=== PATIENT | female | born 1960 | race Caucasian/White ===

== ENCOUNTER 2023-10-30 07:11 | Day surgery (SDC) | payer SELFPAY ==
[2023-10-30 07:43] VITALS: BP 112/66; PULSE 68; RESP 16; TEMP 36.1; O2SAT 99; BMI 18.7
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
[2023-10-30] MEDS: Lactated Ringers 1,000 ML 15 ML IV (08:02)
--- NOTE | 2023-10-30 08:21 | PCM.HP.STD ---
[facility] - General General Date of Admission: 10/30/23 Date of Service: 10/30/23 Chief Complaint: Screening colonoscopy [facility] Dixon MARTINEZ, is a 63 F who presents today for screening colonoscopy. She had a colonoscopy 12 years ago and it was normal. She has a past medical history of hypertension, hypercholesterolemia, diabetes, hypothyroidism. All controlled medicines. [facility] Medical History (Updated 10/29/23 @ 10:01 by Joselin Jimenez) Chronic alcoholism in remission Dietary restriction DM w/o complication type II, uncontrolled Emphysema, unspecified Fatty liver Former smoker GERD (gastroesophageal reflux disease) High cholesterol History of stress test Hyperlipidemia Hypothyroid Iron deficiency anemia Loss of hearing Low iron Marijuana use Meniere disease Pancytopenia Post-menopausal Severe major depression Thyroid disease Vitamin D deficiency Wears glasses Wears hearing aid Home Medications atorvastatin 10 mg tablet 10 mg PO DAILY 10/15/23 [History Last Taken Unknown] empagliflozin 10 mg tablet (Jardiance) 10 mg PO DAILY 10/15/23 [History Last Taken Unknown] glimepiride 4 mg tablet 2 mg PO BID 10/15/23 [History Last Taken Unknown] levothyroxine 75 mcg tablet (Synthroid) 75 mcg PO DAILY 10/15/23 [History Last Taken Unknown] lisinopril 2.5 mg tablet 2.5 mg PO DAILY 10/15/23 [History Last Taken Unknown] biotin 10,000 mcg capsule 10,000 mcg PO DAILY 10/29/23 [History Last Taken Unknown] cholecalciferol (vitamin D3) 25 mcg (1,000 unit) chewable tablet (Vitamin D3) 10,000 unit PO DAILY 10/29/23 [History Last Taken Unknown] cyanocobalamin (vitamin B-12) 1,000 mcg tablet (Vitamin B-12) 5,000 mcg PO DAILY 10/29/23 [History Last Taken Unknown] ginkgo biloba 60 mg tablet 60 mg PO DAILY 10/29/23 [History Last Taken Unknown] multivitamin with minerals-folic acid 12 mcg chewable tablet (Centrum Adults) 1 tab PO DAILY 10/29/23 [History Last Taken Unknown] vitamin B complex (Complex B-100 tablet,extended release) 1 tab PO DAILY 10/29/23 [History Last Taken Unknown] Allergy/AdvReac Type Severity Reaction Status Date / Time metformin AdvReac NEEDS Verified 10/30/23 07:41 FOLLOW-UP Surgical History (Updated 10/29/23 @ 10:01 by Joselin Jimenez) History of History of cholecystectomy History of laparoscopy History of tonsillectomy Hx of colonoscopy Social History (Updated 10/15/23 @ 08:28 by Chani Chase) household members: other details: Lives alone current occupational status: unemployed Smoking Status: Former smoker alcohol intake: former substance use type: does not use ROS Review of Systems ROS Unobtainable: other Constitutional Constitutional: Denies fatigue, fever(s), poor appetite, weight gain or weight loss ENT HEENT: Denies mouth lesions Cardiovascular Cardiovascular: Denies abdominal bloating, abdominal edema or abdominal pain Respiratory/Chest Respiratory/Chest: Denies change in mental status, change in phlegm color, chest congestion or chest tightness Gastrointestinal Gastrointestinal: Denies belching, bloating, change in bowel habits, change in stool character, chewing difficulty, coffee ground emesis, constipation, cramping, diarrhea, dyspepsia, dysphagia, early satiety, excessive flatus, fecal incontinence, heartburn, hematemesis, hematochezia, hemorrhoids, loose stools, melena, nausea, odynophagia, rectal bleeding, tenesmus, vomiting or weight changes Genitourinary Genitourinary: Denies abdominal discomfort, burning urination or itching Musculoskeletal Musculoskeletal: Reports as per HPI; Denies muscle weakness or myalgias Integumentary Integumentary: Denies jaundice Neurologic Neurologic: Denies lack of coordination or weakness Psychiatric Psychiatric: Denies confusion, depression, memory loss, mood swings, paranoia or suicidal ideation Endocrine Endocrinology: Denies systems reviewed and no addt'l complaints, except as documented Hematologic/Lymphatic Hematologic/Lymphatic: Denies anemia, easy bleeding, easy bruising or lymphadenopathy Allergic/Immunologic Allergic/Immunologic: Denies systems reviewed and no addt'l complaints, except as documented Vital Signs Vital Signs Vital Signs: 10/30/23 07:43 10/30/23 07:43 Temperature 97 F L Temperature Source Temporal Pulse Rate 68 Respiratory Rate 16 Respiratory Pattern Normal Blood Pressure 112/66 Blood Pressure Mean 81 Blood Pressure Source Monitor Blood Pressure Position Sitting Blood Pressure Location Right Arm Pulse Ox 99 Oxygen Delivery Method Room Air Weight Weight: 109 lb Body Mass Index (BMI) 18.7 Physical Exam Const alert General Appearance: cooperative Orientation / Consciousness: oriented to person HEENT hearing grossly normal bilaterally Head and Scalp: normal to inspection Face and Sinus: face symmetric Nose: external nose normal Mouth: oral and palatal mucosa normal Eyes conjunctivae normal General Eye: normal appearance of both eyes Neck full ROM General: normal visual inspection Lymph Lymphatic: no lymphadenopathy noted Chest inspection of chest normal and palpation of chest normal Chest: symmetrical chest wall rise Resp normal respiratory effort Effort and Inspection: able to speak in complete sentences Cardio regular rate GI non-distended Percussion: normal to percussion Rectal Exam: deferred Neuro Speech: speech normal Gait (Neuro): normal gait Assessment & Plan Assessment/Plan (1) Encounter for screening for malignant neoplasm of colon: PLAN: She was explained alternatives, risk, benefits including not withstanding bleeding, infection, sepsis, perforation, need for emergent surgery and . She will have an ASA of 3.
[2023-10-30 08:22] LABS: Bedside Glucose 164 mg/dL (74-106)
--- NOTE | 2023-10-30 09:59 | OP.CCLET_ITS ---
10/30/2023 Ellen Lao Md Re : Colonoscopy procedure for Gypsy Gramajo Dear Tashia This procedure was performed on Monday, October 30, 2023. My impressions and recommendations are as follows: Impressions : - The entire examined colon is normal. - No specimens collected. Recommendations : - Discharge patient to home. - Resume previous diet. - Repeat colonoscopy in 10 years for screening purposes. - Continue present medications. My findings are described in the full procedure note, which is enclosed. If I can be of further assistance, please feel free to contact me at . Sincerely, Franc Gerber, 10/30/2023 9:58:46 AM This report has been signed electronically.
--- NOTE | 2023-10-30 09:59 | OP.COLON_ITS ---
Patient Name: Gypsy Gramajo Procedure Date: 10/30/2023 9:19 AM Date of : 1960 Age: 63 Procedure: Colonoscopy Indications: Screening for colorectal malignant neoplasm Providers: Franc Gerber DO Medicines: Monitored Anesthesia Care Patient Profile: This is a 63 year old female. Refer to note in patient chart for documentation of history and physical. Last Colonoscopy: more than 10 years ago. Complications: No immediate complications. Procedure: Pre-Anesthesia Assessment: - Prior to the procedure, a History and Physical was performed, and patient medications and allergies were reviewed. The patient is competent. The risks and benefits of the procedure and the sedation options and risks were discussed with the patient. All questions were answered and informed consent was obtained. Patient identification and proposed procedure were verified by the physician in the pre-procedure area. Mental Status Examination: alert and oriented. Airway Examination: normal oropharyngeal airway and neck mobility. Respiratory Examination: clear to auscultation. CV Examination: normal. Prophylactic Antibiotics: The patient does not require prophylactic antibiotics. Prior Anticoagulants: The patient has taken no anticoagulant or antiplatelet agents. After reviewing the risks and benefits, the patient was deemed in satisfactory condition to undergo the procedure. The anesthesia plan was to use monitored anesthesia care (MAC). Immediately prior to administration of medications, the patient was re-assessed for adequacy to receive sedatives. The heart rate, respiratory rate, oxygen saturations, blood pressure, adequacy of pulmonary ventilation, and response to care were monitored throughout the procedure. The physical status of the patient was re-assessed after the procedure. After I obtained informed consent, the scope was passed under direct vision. Throughout the procedure, the patient's blood pressure, pulse, and oxygen saturations were monitored continuously. The pediatric colonoscope was introduced through the anus and advanced to the cecum, identified by appendiceal orifice and ileocecal valve. The colonoscopy was performed without difficulty. The patient tolerated the procedure well. The quality of the bowel preparation was adequate. The ileocecal valve, appendiceal orifice, and rectum were photographed. Scope In: 9:29:02 AM Scope Withdrawal Time 0 hours 15 minutes 8 seconds Scope Out: 9:53:50 AM Total Procedure Duration Time 0 hours 24 minutes 48 seconds Findings: The perianal and digital rectal examinations were normal. The colon (entire examined portion) appeared normal. Impression: - The entire examined colon is normal. - No specimens collected. Recommendation: - Discharge patient to home. - Resume previous diet. - Repeat colonoscopy in 10 years for screening purposes. - Continue present medications. Procedure Code(s): --- Professional --- G0121, Colorectal cancer screening; colonoscopy on individual not meeting criteria for high risk CPT copyright 2021 [employer]. All rights reserved. The codes documented in this report are preliminary and upon cobol engineer review may be revised to meet current compliance requirements. Franc Gerber DO 10/30/2023 9:58:46 AM This report has been signed electronically. Number of Addenda: 0 Note Initiated On: 10/30/2023 9:19 AM
[2023-10-30 10:00] VITALS: BP 112/66; BP 116/70; PULSE 78; RESP 16; TEMP 36.1; O2SAT 100
[2023-10-30 10:05] VITALS: BP 112/66; BP 113/66; PULSE 69; RESP 16; O2SAT 100
[2023-10-30 10:10] VITALS: BP 112/66; BP 124/82; PULSE 82; RESP 16; TEMP 36.3; O2SAT 100
[2023-10-30 10:31] VITALS: BP 112/66
== END 2023-10-30 10:36 | disposition home or self-care (01) ==
LOC: EN 07:20 → AC 07:21
PROVIDERS: PCP Family Medicine; Referring Provider Family Medicine; Visit Provider Internal Medicine Gastroenterology
PROC: 0DJD8ZZ Inspection of Lower Intestinal Tract, Via Natural or Artificial Opening Endoscopic (ICD-10-PCS; CPT 45378; principal; 2023-10-30 08:25)
DX: Z12.11 Encounter for screening for malignant neoplasm of colon (principal); F10.21 Alcohol dependence, in remission; E11.9 Type 2 diabetes mellitus without complications; Z87.891 Personal history of nicotine dependence; F12.90 Cannabis use, unspecified, uncomplicated; E78.00 Pure hypercholesterolemia, unspecified; H81.09 Meniere's disease, unspecified ear; E03.9 Hypothyroidism, unspecified; K21.9 Gastro-esophageal reflux disease without esophagitis; I10 Essential (primary) hypertension; K76.0 Fatty (change of) liver, not elsewhere classified; D50.9 Iron deficiency anemia, unspecified
CPT/HCPCS: G0121; 82962; J7120; J2405

== ENCOUNTER → 2023-11-07 | Outpatient (CLI) | payer SELFPAY ==
--- NOTE | 2023-11-07 13:25 | BI_ITS ---
MAMMOGRAPHY - BILATERAL SCREENING REASON FOR EXAM: Female, 63 years old. Routine annual screening examination. PERTINENT HISTORY: Aunt with breast cancer. TECHNIQUE: Digital bilateral breast curtis (3D mammographic acquisition) in the CC and MLO projections. 2-D mediolateral oblique (MLO) and craniocaudad (CC) views of both breasts were obtained. CAD: Full Field Digital Mammography with Computer Added Detection was performed. COMPARISON: Comparison is made with prior outside examination dated December 20, 2021. FINDINGS: Breast Composition: The breasts are heterogeneously dense, which may obscure small masses. There are no dominant masses or suspicious calcifications. No other significant abnormalities are identified. There has been no significant change since the prior study. BI/SCRN MAMM (CAD)W/CURTIS BILAT IMPRESSION: Stable bilateral screening mammogram. Yearly follow-up mammogram recommended. (A) ASSESSMENT CATEGORY: BIRADS Category 1: Negative. A letter regarding these results will be sent to the patient by the facility within 30 days. Approximately 10% of breast cancers are not detected by mammography. A normal mammogram should not delay biopsy of a clinically suspicious abnormality. [id number] Electronically Signed: David Quezada MD at 14:18 EDT ,
--- NOTE | 2023-11-07 13:25 | BD_ITS ---
STUDY: DUAL ENERGY X-RAY ABSORPTIOMETRY / DXA REASON FOR EXAM: Female, 63 years old. [id number] TECHNIQUE: Bone Mineral Density (BMD) measurements of lumbar spine and bilateral hips were obtained. COMPARISON: None. FINDINGS: Lumbar Spine (L1-L4): g/cm2 (0.826) / T-score (-2.3) / Z-score (-0.7) Findings are suggestive of osteopenia with a high fracture risk. Left Femur Total: g/cm2 (0.691) / T-score (-2.1) / Z-score (-1.0) Left Femoral Neck: g/cm2 (0.629) / T-score (-2.0) / Z-score (-0.6) Right Femur Total: g/cm2 (0.686) / T-score (-2.1) / Z-score (-1.0) Right Femoral Neck: g/cm2 (0.608) / T-score (-2.2) / Z-score (-0.8) BD/Dexa Bone Density Study IMPRESSION: The patient is considered osteopenic as outlined below according to World [employer] Organization (WHO) criteria with a high fracture risk. Reference Information: The T-score is the number of standard deviations above or below the standard which is normal for young adults at their peak bone mineral density. The World Health Organization (WHO) interprets the T-scores as follows: Above -1 Normal bone density Between -1 and -2.5 Osteopenia Equal to / or below -2.5 Osteoporosis As a practical clinical guideline, osteopenia may be graded as follows: Mild -1 through -1.5 Moderate -1.6 through -2.0 Severe -2.1 through -2.4 The Z-score is the number of standard deviations above or below age-matched controls. A Z-score of less than -1.5 would be considered abnormal. References: 1. NIH Osteoporosis and Related Bone Diseases www osteo.org 2. International Society for Clinical Densitometry www iscd.org 3. National Osteoporosis Foundation www nof.org Electronically Signed: David Quezada MD at 11:08 EDT ,
--- NOTE | 2023-11-07 16:12 | MRI_ITS ---
STUDY: MRI BRAIN WITH AND WITHOUT CONTRAST (ATTENTION INTERNAL AUDITORY CANALS - I.A.C.''s) REASON FOR EXAM: Female, 63 years old. SUDDEN SENSORINEURAL HEARING LOSS TECHNIQUE: Standardized multiplanar fat and water weighted pulse sequences were obtained. IV 10ml clariscan was administered for the contrast portion of the examination. COMPARISON: None. FINDINGS: Normal bilateral temporal bones. Normal bilateral internal auditory canals. There is no demonstrated intracanalicular or cisternal vestibular schwannoma ( acoustic neuroma ). There is no enhancement of the bilateral VIIth or VIIIth cranial nerves. Normal bilateral cochlea, vestibules and semicircular canals. Normal size of the ventricles and extra-axial spaces for the patient''s age. Mild to moderate periventricular white matter ischemic changes without mass effect or restricted diffusion... Normal bilateral basal ganglia. Normal thalami. Normal flow voids within the major intracranial circulation suggesting patency by spin echo criteria. Normal venous enhancement. There is no enhancing intra-axial or extra-axial abnormality. There is no extra-axial fluid accumulation. On the sagittal images, there is a suggestion of a tiny nodule arising from the floor of of the sella possibly representing pituitary adenoma measuring 3.8 x 2.8 mm which is incompletely imaged.. Normal, infundibular stalk, optic chiasm and hypothalamus. Normal tectal plate and pineal gland. Normal midbrain, and medulla. There is increased signal intensity within the antoinette on T2 and FLAIR imaging sequence which has an unusual appearance and may represent artifact rather than true chronic ischemic changes. Normal cerebellum. Normal basal cisterns. No demonstrated orbital abnormality, within the constraints of a routine brain study. Normal visualized paranasal sinuses. Normal calvarium and skull base. Normal visualized soft tissue structures. Normal visualized upper cervical spine. MRI/Brain W/WO Contrast IMPRESSION: Mild to moderate periventricular white matter ischemic changes. No evidence for acute. Infarct No evidence for acoustic neuroma.. Question tiny left cerebellar possibly pituitary nodule incompletely visualized.. Dedicated study of the sella turcica would be useful for further assessment if clinically indicated Electronically Signed: Stan Weiss MD at 16:58 EDT ,
[2023-11-07 19:27] LABS: CREATININE FINGERSTICK < 1.0 mg/dL (0.55-1.02); EGFR FINGERSTICK > 60.0000 mL/min (>60)
== END | disposition home or self-care (01) ==
PROVIDERS: PCP Family Medicine; Referring Provider Family Medicine; Visit Provider Family Medicine
DX: Z12.31 Encounter for screening mammogram for malignant neoplasm of breast (principal); H91.22 Sudden idiopathic hearing loss, left ear; Z80.3 Family history of malignant neoplasm of breast; Z78.0 Asymptomatic menopausal state
CPT/HCPCS: 70553; 77063; 77067; 77080; A9575

== ENCOUNTER 2024-03-30 12:46 | Inpatient (IN) | payer OTHER, SELFPAY ==
[2024-03-30] VITALS (10 sets, daily range): BP systolic 122–155; BP diastolic 68–96; PULSE 68–108; RESP 16–17; TEMP 36.1–37.2; O2SAT 95–100; BMI 18.8
--- NOTE | 2024-03-30 13:35 | EX.ED.SAOD ---
HPI History of Present Illness Chief Complaint: ETOH Intox Informant: patient Onset/Context/Timing Onset: Weeks Context: Gradual Onset Timing: Continuous Current Severity: Mild Maximum Severity: Mild Narrative Narrative: 63-year-old female history of alcohol abuse. Had been sober since last November 2022 when she had her last detox. The last several weeks she has began drinking again. Is looking to get inpatient detox. Prior similar symptoms: Yes Recent Illness/Hospitalization: No PFSH PFS Medical History Meniere disease Loss of hearing Wears hearing aid Wears glasses Post-menopausal Marijuana use Thyroid disease Low iron Fatty liver High cholesterol Dietary restriction Emphysema, unspecified Former smoker History of stress test Chronic alcoholism in remission Vitamin D deficiency Severe major depression Pancytopenia Iron deficiency anemia GERD (gastroesophageal reflux disease) Hypothyroid Hyperlipidemia DM w/o complication type II, uncontrolled Home Medications ?Medication ?Instructions ?Recorded ?Last Taken ?Type atorvastatin 10 mg tablet 10 mg PO DAILY 10/15/23 Unknown History empagliflozin 10 mg tablet 10 mg PO DAILY 10/15/23 Unknown History (Jardiance) glimepiride 4 mg tablet 2 mg PO BID 10/15/23 Unknown History levothyroxine 75 mcg tablet 75 mcg PO DAILY 10/15/23 Unknown History (Synthroid) lisinopril 2.5 mg tablet 2.5 mg PO DAILY 10/15/23 Unknown History biotin 10,000 mcg capsule 10,000 mcg PO DAILY 10/29/23 Unknown History cholecalciferol (vitamin D3) 25 10,000 unit PO DAILY 10/29/23 Unknown History mcg (1,000 unit) chewable tablet (Vitamin D3) cyanocobalamin (vitamin B-12) 5,000 mcg PO DAILY 10/29/23 Unknown History 1,000 mcg tablet (Vitamin B-12) ginkgo biloba 60 mg tablet 60 mg PO DAILY 10/29/23 Unknown History multivitamin with minerals-folic 1 tab PO DAILY 10/29/23 Unknown History acid 12 mcg chewable tablet (Centrum Adults) vitamin B complex (Complex B-100 1 tab PO DAILY 10/29/23 Unknown History tablet,extended release) ibandronate 150 mg tablet mg PO 03/30/24 Unknown History Allergy/AdvReac Type Severity Reaction Status Date / Time metformin AdvReac NEEDS Verified 03/30/24 12:48 FOLLOW-UP Surgical History History of laparoscopy History of tonsillectomy History of cholecystectomy History of Hx of colonoscopy Social History household members: other details: Lives alone current occupational status: unemployed Smoking Status: Former smoker alcohol intake: former substance use type: does not use ROS ROS ED ROS Narrative Denies recent illness. Constitutional Constitutional ED: Denies chills or fever(s) Eyes Eyes: Denies blurry vision ENT ENT ED: Denies ear pain, rhinorrhea or sore throat Cardiovascular Cardiovascular: Denies chest pain or palpitations Respiratory/Chest Respiratory/Chest: Denies cough or dyspnea Gastrointestinal Gastrointestinal: Denies abdominal pain, constipation, diarrhea, melena, nausea or vomiting Genitourinary Genitourinary ED: Denies dysuria Musculoskeletal Musculoskeletal: Denies arthralgias Integumentary Denies abscess Neurologic Neurologic: Denies headache(s) Psychiatric Psychiatric: Denies anxiety Endocrine Endocrinology: Denies cold intolerance Hematologic/Lymphatic Hematologic/Lymphatic: Denies easy bleeding Allergic/Immunologic Allergic/Immunologic ED: Denies mouth swelling EXAM Physical Exam Narrative Exam Narrative: Well-appearing 63-year-old female. Vital signs are stable afebrile. H EENT exam unremarkable. Moist mucous membranes. Neck nontender no JVD. Lungs clear to auscultation. Heart regular rhythm rate about 105 no murmur. Chest wall ribs nontender. Abdomen soft nontender. Moving all extremities. Nontender no edema. Neurologically she is awake alert no focal motor deficits. Const Vital Signs: 03/30/24 12:47 03/30/24 13:51 03/30/24 14:00 Temperature 98.2 F Temperature Source Temporal Pulse Rate 108 H 81 86 Respiratory Rate 16 16 17 Blood Pressure 155/80 H 153/96 H 142/68 H Blood Pressure Mean 105 115 92 Pulse Ox 99 100 97 Oxygen Delivery Method Room Air Room Air Room Air Positive well nourished and well developed; Negative for obese, cachectic, contractures or unkempt General Appearance ED: well developed and NAD; Negative for unkempt, cachectic, contractures or pallor Nutritional Appearance: Negative for cachectic or obese HEENT Reports moist mucous membranes; Denies dry mucous membranes Negative for atraumatic, trauma or tenderness Mouth ED: No dry mucous membranes Mouth: No dry mucous membranes Eyes PERRL and EOMs intact bilaterally General Eye ED: Negative for pale conjunctiva Neck no lymphadenopathy, supple and no JVD Thyroid: Negative for tender or other Lymph Lymphatic: no lymphadenopathy noted Chest Wall inspection of chest normal Chest: Negative for other Resp normal respiratory effort and clear to auscultation bilaterally Effort and Inspection: Negative for retractions Auscultation: Negative for rales, rhonchi or wheezes Cardio regular rate, regular rhythm, S1 normal heart sound, S2 normal heart sound and no murmurs Rate: Negative for bradycardia or tachycardic Rhythm: Negative for abnormal rhythm GI soft to palpation, non-tender, non-distended and no masses Inspection: Negative for abdominal distention Palpation: Negative for tender or guarding Back/Spine no CVA tenderness General Back: Negative for CVA tenderness Cervical Spine: Negative for cervical spine tenderness Thoracic Spine / Upper Back: Negative for thoracic spinal tenderness Lumbar Spine / Lower Back: Negative for lumbar spinal tenderness Extremity General Extremety ED: Negative for edema or tenderness General Extremity: Negative for edema Neuro oriented x3 and CN's II-XII intact bilaterally Sensorium / Orientation: alert, oriented to person, oriented to place and oriented to time; Negative for confused, lethargic or stuporous Speech: speech normal Motor Exam: strength 5/5 throughout Psych mental status grossly normal and thought process normal Appearance: Negative for unkempt Attitude: No belligerent, No agitated, No aggressive and No hostile Mood & Affect: anxious; Negative for depressed or tearful Skin General Skin Exam: Negative for jaundice or pallor Lesions: no lesions Rashes: no rashes Trauma: Negative for abrasion or laceration MDM MDM MDM Narrative Medical decision making narrative: 63-year-old female requesting detox for alcohol abuse. Exam benign. Screening labs are being obtained. Is already spoken to the hospitalist. He is coming down to admit her. She also be given a milligram of Ativan for anxiety. History & Record Review Discussion w/independent historian: Patient Additional record(s) reviewed:: Prior inpatient record, Prior outpatient record, Prior ED visit and Prior labs Lab Data Attestation: I reviewed the patient's lab results. Lab results narrative: CBC normal. White count 8. H&H 14 and 41. Platelets 214. Electrolytes show sodium 129. Gap 13. Normal BUN of 13 and creatinine 0.5. Glucose 185. Liver enzymes are elevated consistent with her alcohol use. AST of 105. ALT 145. Alk phos 177. Lipase is normal at less than 10. Alcohol level is elevated at 183 consistent with acute intoxication. Labs: Laboratory Results - last 24 hr 03/30/24 03/30/24 13:05 13:45 WBC 8.4 RBC 4.54 Hgb 14.2 Hct 41.9 MCV 92.3 MCH 31.3 MCHC 33.9 RDW Std Deviation 47.7 H RDW Coeff of Pelon 14.2 Plt Count 214 MPV 9.4 Immature Gran % (Auto) 0.600 Neut % (Auto) 78.2 H Lymph % (Auto) 13.6 L [place] % (Auto) 6.8 Eos % (Auto) 0.1 Baso % (Auto) 0.7 Absolute Neuts (auto) 6.6 Absolute Lymphs (auto) 1.14 Nucleated RBC % 0 Sodium 129 L Potassium 4.1 Chloride 93 L Carbon Dioxide 23.0 Anion Gap 13 BUN 13 Creatinine 0.58 Est GFR (MDRD) Af Amer 136 Est GFR (MDRD) Non-Af 112 BUN/Creatinine Ratio 22.5 H Glucose 185 H Calcium 9.2 Total Bilirubin 0.50 AST 105 H ALT 145 H Alkaline Phosphatase 177 H Total Protein 8.1 Albumin 4.0 Globulin 4.1 Albumin/Globulin Ratio 1.0 Lipase < 10 L Ur Drug Screen Comment Ethyl Alcohol 183.0 Discharge Plan Dx/Rx/DC Orders Clinical Impression: History of alcohol abuse, Admitted to alcohol detoxification center, History of diabetes mellitus Disposition Disposition: Acute Care Hospital [facility]
[2024-03-30] MEDS: LORazepam 2 MG/ML Syringe 1 MG IV (13:41)
[2024-03-30 13:46] LABS: Absolute Lymphocyte Count 1.14 X10^3/uL (0.83-4.51); Absolute Neutrophil Count 6.6 X10^3/uL (2.0-7.7); Basophil# 0.06 X10^3/uL; Basophil% 0.7 % (0-1); Eosinophil# 0.01 X10^3/uL; Eosinophils% 0.1 % (0-5); Hematocrit 41.9 % (37-47); Hemoglobin 14.2 g/dL (12.0-15.0); Lymphocyte # 1.14 X10^3/ul (0.83-4.51); Lymphocyte % 13.6 % (19-41); Mean Corp Hgb Conc 33.9 g/dL (32-36); Mean Corpuscular Hgb 31.3 pg (27.0-32.0); Mean Corpuscular Volume 92.3 fL (81-99); Mean Platelet Vol. 9.4 fl (6.2-12.0); Monocyte# 0.57 X10^3/uL; Monocyte% 6.8 % (0-10); NRBC Flagged by Analyzer 0 % (0-5); Neutrophil # 6.57 X10^3/uL (2.7-7.7); Neutrophil % 78.2 % (47-70); Platelet Count 214 K/mm3 (150-450); RBC Distribution Width CV 14.2 % (11.6-14.6); RBC Distribution Width SD 47.7 fl (35.1-43.9); Red Blood Count 4.54 M/mm3 (4.2-5.4); White Blood Count 8.4 K/mm3 (4.4-11.0)
[2024-03-30 14:08] LABS: AST(SGOT) 105 U/L (15-37); Alanine Aminotransfer ALT/SGPT 145 U/L (13-56); Alkaline Phosphatase 177 U/L (45-117); Anion Gap 13 (5-15); BUN 13 mg/dL (7-18); BUN/Creat Ratio 22.5 RATIO (10-20); Calcium,Total 9.2 mg/dL (8.5-10.1); Chloride 93 mmol/L (98-107); Creatinine, Serum 0.58 mg/dL (0.55-1.02); EST Glomerular Filtration Rate 112 mL/min (>60); Est Glom Filt Rate - Afr Amer 136 mL/min (>60); Globulin 4.1 g/dL (2.2-4.2); Glucose 185 mg/dL (74-106); Lipase < 10 U/L (13-75); Potassium 4.1 mmol/L (3.5-5.1); Protein, Total 8.1 g/dL (6.4-8.2); Sodium Level 129 mmol/L (136-145)
[2024-03-30 14:20] LABS: Amphetamine Urine VISTA NEGATIVE (<1000 ng/mL); Barbiturate Urine VISTA NEGATIVE (< 200 ng/mL); Benzodiazepine Urine VISTA NEGATIVE (< 200 ng/mL); Cocaine Urine VISTA NEGATIVE (< 300 ng/mL); Ecstacy Urine VISTA NEGATIVE (< 500 ng/mL); Methadone Urine VISTA NEGATIVE (< 300 ng/mL); PCP Urine VISTA NEGATIVE (< 25 ng/mL); THC Urine VISTA POSITIVE (< 50 ng/mL); Vista UDS pH Range 6
--- NOTE | 2024-03-30 14:52 | PCM.HP.STD ---
HPI - General General Date of Admission: 03/30/24 Date of Service: 03/30/24 Chief Complaint: Alcohol detox HPI Narrative JOSE RAMON MARTINEZ, is a 63 F who presents to the emergency room at [facility] requesting services for alcohol detox, patient has been drinking heavily over the past 2 weeks, she has a history of alcoholism and was sober for quite some time and then relapsed. Patient states that she went through previous detox program in the hospital but not here. Patient's last drink was this morning, she states she drinks approximately 12 5% alcoholic drinks daily. Patient has never had actual DTs or seizures. Patient appears somewhat nervous at this time but is alert and responds appropriately to questions. Labs were remarkable for sodium 129, chloride 93, glucose of 185, and elevated liver enzymes with AST of 105, ALT of 145, and alkaline phosphatase of 177. Patient's talk screen was positive for cannabinoids. Blood alcohol level was 183. 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 [facility] Medical History Meniere disease Loss of hearing Wears hearing aid Wears glasses Post-menopausal Marijuana use Thyroid disease Low iron Fatty liver High cholesterol Dietary restriction Emphysema, unspecified Former smoker History of stress test Chronic alcoholism in remission Vitamin D deficiency Severe major depression Pancytopenia Iron deficiency anemia GERD (gastroesophageal reflux disease) Hypothyroid Hyperlipidemia DM w/o complication type II, uncontrolled Home Medications ?Medication ?Instructions ?Recorded ?Last Taken ?Type atorvastatin 10 mg tablet 5 mg PO DAILY 10/15/23 03/29/24 History empagliflozin 10 mg tablet 10 mg PO DAILY 10/15/23 03/29/24 History (Jardiance) glimepiride 4 mg tablet 2 mg PO BID 10/15/23 03/29/24 History levothyroxine 75 mcg tablet 75 mcg PO DAILY 10/15/23 03/29/24 History (Synthroid) lisinopril 2.5 mg tablet 2.5 mg PO DAILY 10/15/23 03/29/24 History biotin 10,000 mcg capsule 10,000 mcg PO DAILY 10/29/23 03/29/24 History cholecalciferol (vitamin D3) 25 10,000 unit PO DAILY 10/29/23 03/29/24 History mcg (1,000 unit) chewable tablet (Vitamin D3) cyanocobalamin (vitamin B-12) 5,000 mcg PO DAILY 10/29/23 03/29/24 History 1,000 mcg tablet (Vitamin B-12) ginkgo biloba 60 mg tablet 60 mg PO DAILY 10/29/23 Unknown History multivitamin with minerals-folic 1 tab PO DAILY 10/29/23 03/29/24 History acid 12 mcg chewable tablet (Centrum Adults) vitamin B complex (Complex B-100 1 tab PO DAILY 10/29/23 03/29/24 History tablet,extended release) ibandronate 150 mg tablet 150 mg PO .COMPLEX 03/30/24 Unknown History Allergy/AdvReac Type Severity Reaction Status Date / Time metformin AdvReac NEEDS Verified 03/30/24 12:48 FOLLOW-UP Surgical History History of laparoscopy History of tonsillectomy History of cholecystectomy History of Hx of colonoscopy Social History household members: other details: Lives alone current occupational status: unemployed Smoking Status: Former smoker alcohol intake: former substance use type: does not use ROS Constitutional Constitutional: Denies anorexia, change in weight, fever(s), night sweats or weakness Eyes Eyes: Denies blurry vision, change in vision, discharge from eye(s) or eye pain Cardiovascular Cardiovascular: Denies chest pain, claudication, edema or palpitations Respiratory/Chest Respiratory/Chest: Denies cough, hemoptysis, shortness of breath at rest or shortness of breath with exertion Gastrointestinal Gastrointestinal: Denies abdominal pain, constipation, diarrhea, hematemesis, hematochezia, melena, nausea or vomiting Genitourinary Genitourinary: Denies dysuria, hematuria, urinary frequency, urinary hesitancy, urinary incontinence or urinary urgency Musculoskeletal Musculoskeletal: Denies back pain, joint pain, joint stiffness, joint swelling, myalgias or neck pain Neurologic Neurologic: Denies abnormal gait, abnormal speech, dizziness, focal weakness, headache(s), loss of vision, numbness, other visual disturbances, paresthesias, syncope or tingling Psychiatric Psychiatric: Reports anxiety; Denies cognitive impairment, depression, irritability, mood swings or suicidal ideation Endocrine Endocrinology: Denies change in body appearance, cold intolerance, excessive sweating, heat intolerance, polydipsia or polyuria Hematologic/Lymphatic Hematologic/Lymphatic: Denies none, anemia, easy bleeding, easy bruising or lymphadenopathy Allergic/Immunologic Allergic/Immunologic: Denies rhinitis, urticaria, eczemia or asthma Vital Signs Vital Signs Vital Signs: 03/30/24 12:47 03/30/24 13:51 03/30/24 14:00 Temperature 98.2 F Temperature Source Temporal Pulse Rate 108 H 81 86 Respiratory Rate 16 16 17 Blood Pressure 155/80 H 153/96 H 142/68 H Blood Pressure Mean 105 115 92 Pulse Ox 99 100 97 Oxygen Delivery Method Room Air Room Air Room Air Physical Exam Const alert, oriented x3, no apparent distress, average body habitus and healthy appearing General Appearance: cooperative, well kempt and well developed Orientation / Consciousness: awake, oriented to person, oriented to place and oriented to time HEENT normocephalic, head/scalp atraumatic, hearing grossly normal bilaterally and moist oral mucous membranes Eyes PERRL, EOMs intact bilaterally and conjunctivae normal Neck supple, no JVD, thyroid normal and no carotid bruits General: trachea midline Resp normal respiratory effort, no retractions, no use of accessory muscles and clear to auscultation bilaterally Auscultation: Negative for rales, rhonchi or wheezes Cardio regular rate, regular rhythm, S1 normal heart sound, S2 normal heart sound, no murmurs, no rub and no gallops GI normal to inspection, nondistended, normoactive bowel sounds, soft to palpation, non-tender and non-distended Extremity no clubbing, cyanosis or edema Skin no rashes or lesions noted General Skin Exam: no breakdown Neuro oriented x3, CN's II-XII intact bilaterally, moves all extremities, no focal motor deficits and no sensory deficits noted Sensorium / Orientation: awake and alert Speech: speech normal Psych Psych Narrative: Patient appears slightly anxious at the time my examination Results Lab / Micro Data 03/30/24 13:05 03/30/24 13:05 Labs: Laboratory Results - last 24 hr 03/30/24 13:05: WBC 8.4, RBC 4.54, Hgb 14.2, Hct 41.9, MCV 92.3, MCH 31.3, MCHC 33.9, RDW Std Deviation 47.7 H, RDW Coeff of Pelon 14.2, Plt Count 214, MPV 9.4, Immature Gran % (Auto) 0.600, Neut % (Auto) 78.2 H, Lymph % (Auto) 13.6 L, [place] % (Auto) 6.8, Eos % (Auto) 0.1, Baso % (Auto) 0.7, Absolute Neuts (auto) 6.6, Absolute Lymphs (auto) 1.14, Nucleated RBC % 0, Sodium 129 L, Potassium 4.1, Chloride 93 L, Carbon Dioxide 23.0, Anion Gap 13, BUN 13, Creatinine 0.58, Est GFR (MDRD) Af Amer 136, Est GFR (MDRD) Non-Af 112, BUN/Creatinine Ratio 22.5 H, Glucose 185 H, Calcium 9.2, Total Bilirubin 0.50, AST 105 H, ALT 145 H, Alkaline Phosphatase 177 H, Total Protein 8.1, Albumin 4.0, Globulin 4.1, Albumin/Globulin Ratio 1.0, Lipase < 10 L, Ethyl Alcohol 183.0 03/30/24 13:45: Urine Opiates Screen NEGATIVE, Urine Methadone Screen NEGATIVE, Ur Barbiturates Screen NEGATIVE, Ur Phencyclidine Scrn NEGATIVE, Ur Amphetamines Screen NEGATIVE, MDMA (Ecstasy) Screen NEGATIVE, U Benzodiazepines Scrn NEGATIVE, Urine Cocaine Screen NEGATIVE, U Cannabinoids Screen POSITIVE H, Ur Drug Screen Comment Assessment & Plan Assessment/Plan (1) Admitted to alcohol detoxification center: PLAN: Plan 1. Acute alcohol withdrawal-patient will be admitted to [place] [address], orders were entered using the addiction order sets for alcohol detox. 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 #2 type 2 diabetes-patient's blood sugars will be monitored, sliding scale insulin will be used as needed, I will keep the patient on her present home medications #3 essential hypertension-patient will remain on her home medications, they will be adjusted as needed #4 hyponatremia-etiology unclear at this time, probably secondary to beer potomania, BMP will be rechecked tomorrow #5 alcohol intoxication #6 chronic alcoholism-complicates care, management, recovery, and prognosis Total clinical time spent by myself addressing the patient's medical issues, reviewing all of her data, and collaborating with patient's care team: 55 minutes Charges/Coding Visit Charges Inpatient E&M: 03337 Init Hosp L2
[2024-03-30] MEDS: Phenobarbital 32.4 MG Tablet 64.8 MG PO ×3 (15:59→23:42)
[2024-03-30] MEDS: LORazepam 2 MG/ML Syringe IV (15:59)
[2024-03-30] MEDS: 0.9% Saline Lock 10 ML Syringe IV (15:59)
[2024-03-30] MEDS: Gabapentin 300 MG Capsule PO (16:34)
[2024-03-30 16:55] LABS: Bedside Glucose 111 mg/dL (74-106)
[2024-03-30] MEDS: Glimepiride 2 MG Tablet PO (17:50)
[2024-03-31 03:47] VITALS: BP 128/94; PULSE 74; RESP 14; TEMP 37.2; O2SAT 99
[2024-03-31] MEDS: Phenobarbital 32.4 MG Tablet 64.8 MG PO ×5 (03:58→21:21)
[2024-03-31] MEDS: Levothyroxine 75 MCG Tablet PO (05:06)
[2024-03-31 05:30] LABS: Anion Gap 4 (5-15); BUN 16 mg/dL (7-18); Calcium,Total 9.2 mg/dL (8.5-10.1); Chloride 101 mmol/L (98-107); Creatinine, Serum 0.67 mg/dL (0.55-1.02); EST Glomerular Filtration Rate 95 mL/min (>60); Est Glom Filt Rate - Afr Amer 115 mL/min (>60); Estimated Creatinine Clearance 66.38 ml/min; Glucose 117 mg/dL (74-106); Potassium 4.3 mmol/L (3.5-5.1); Sodium Level 134 mmol/L (136-145)
[2024-03-31] MEDS: Glimepiride 2 MG Tablet PO (08:34)
[2024-03-31] MEDS: Lisinopril 2.5 MG Tablet PO (08:34)
[2024-03-31] MEDS: Thiamine Hydrochloride 100 MG Tablet PO (08:34)
[2024-03-31] MEDS: Empagliflozin 10 MG Tablet PO (08:34)
[2024-03-31] MEDS: Atorvastatin Calcium 10 MG Tablet 5 MG PO (08:34)
[2024-03-31] MEDS: Folic Acid 1 MG Tablet PO (08:34)
[2024-03-31] MEDS: Gabapentin 300 MG Capsule PO ×2 (10:08→17:29)
[2024-03-31] MEDS: LORazepam 1 MG Tablet 2 MG PO (10:08)
[2024-03-31] MEDS: hydrOXYzine PAM 25 MG Capsule 50 MG PO ×2 (10:09→21:35)
--- NOTE | 2024-03-31 11:10 | PN_ITS ---
Subjective Subjective Patient seen and examined. She is admitted for acute alcohol withdrawal. Patient is tearful and states anxiety is kicking in. Patient was on Ativan for anxiety. She denies any shakes or tremors. Review of symptoms otherwise negative. Objective Data Objective Data Vital Signs: Vital Signs Temp Pulse Resp BP Pulse Ox O2 Del Method 98.9 F 74 14 128/94 H 99 Room Air 03/31/24 03:47 03/31/24 03:47 03/31/24 03:47 03/31/24 03:47 03/31/24 03:47 03/31/24 03:47 Oxygen Delivery Method Room Air Weight: 106 lb 7.732 oz Body Mass Index (BMI) 18.8 Medical Nutrition Assessment Dietitian: Malnutrition Criteria Met Start: 03/30/24 17:21 Freq: Status: Active Protocol: Document 03/30/24 17:21 RMA (Rec: 03/30/24 17:21 RMA [id number]) Nutrition Malnutrition Evidence of Malnutrition Exists Yes Malnutrition (severe): Chronic,Social/Behavioral/ Environmental Evidenced By Suboptimal Energy Intake ( Severe),Weight Loss (Severe), Physical Changes (Moderate) Clinical Problem Chronic Disease or Condition Related Malnutrition Etiology severe protein-calorie malnutrition in the context of chronic disease/social circumstance related to alcohol abuse and inadequate energy/protein/oral intake Signs/Symptoms as evidenced by PO meeting less than 50% estimated nutrition needs x 6 months, BMI 18.9, unintentional weight loss ~12% x 6 months and + NFPE with moderate muscle wasting and fat depletion in the clavicle, face, orbital, arms and legs Status Active Problem Recommendation Dietitian Recommendations/Changes Will adjust diet to 1800 calorie, consistent carbohydrate. Will add 240mL glucerna shake w/ breakfast. Will add extra 1-2 oz meat/ protein Q meal. Lab / Micro Data 03/30/24 13:05 03/31/24 04:40 Labs: Laboratory Results - last 24 hr 03/30/24 13:05: WBC 8.4, RBC 4.54, Hgb 14.2, Hct 41.9, MCV 92.3, MCH 31.3, MCHC 33.9, RDW Std Deviation 47.7 H, RDW Coeff of Pelon 14.2, Plt Count 214, MPV 9.4, Immature Gran % (Auto) 0.600, Neut % (Auto) 78.2 H, Lymph % (Auto) 13.6 L, [place] % (Auto) 6.8, Eos % (Auto) 0.1, Baso % (Auto) 0.7, Absolute Neuts (auto) 6.6, Absolute Lymphs (auto) 1.14, Nucleated RBC % 0, Sodium 129 L, Potassium 4.1, C hloride 93 L, Carbon Dioxide 23.0, Anion Gap 13, BUN 13, Creatinine 0.58, Est GFR (MDRD) Af Amer 136, Est GFR (MDRD) Non-Af 112, BUN/Creatinine Ratio 22.5 H, Glucose 185 H, Calcium 9.2, Total Bilirubin 0.50, AST 105 H, ALT 145 H, Alkaline Phosphatase 177 H, Total Protein 8.1, Albumin 4.0, Globulin 4.1, Albumin/Globulin Ratio 1.0, Lipase < 10 L, Ethyl Alcohol 183.0 03/30/24 13:45: Urine Opiates Screen NEGATIVE, Urine Methadone Screen NEGATIVE, Ur Barbiturates Screen NEGATIVE, Ur Phencyclidine Scrn NEGATIVE, Ur Amphetamines Screen NEGATIVE, MDMA (Ecstasy) Screen NEGATIVE, U Benzodiazepines Scrn NEGATIVE, Urine Cocaine Screen NEGATIVE, U Cannabinoids Screen POSITIVE H, Ur Drug Screen Comment 03/30/24 16:32: POC Glucose 111 H 03/31/24 04:40: Sodium 134 L, Potassium 4.3, Chloride 101, Carbon Dioxide 29.0, Anion Gap 4 L, BUN 16, Creatinine 0.67, Estim Creat Clear Calc 66.38, Est GFR (MDRD) Af Amer 115, Est GFR (MDRD) Non-Af 95, BUN/Creatinine Ratio 24.0 H, G lucose 117 H, Calcium 9.2 Physical Exam Const alert and oriented x3 Constitutional Narrative: in moderate distress, anxious and tearful HEENT normocephalic, head/scalp atraumatic, moist oral mucous membranes and oropharynx normal Eyes PERRL and EOMs intact bilaterally Neck no lymphadenopathy and supple Lymph Lymphatic: no lymphadenopathy noted and no lymphedema noted Resp normal respiratory effort, normal air movement and clear to auscultation bilaterally Cardio regular rate, regular rhythm, S1 normal heart sound, S2 normal heart sound and no murmurs GI normal to inspection, nondistended, normoactive bowel sounds, soft to palpation, non-tender and non-distended Extremity normal capillary refill, no clubbing, cyanosis or edema and no calf tenderness General Extremity: no tenderness to palpation of joints or extremities Skin General Skin Exam: no breakdown Neuro CN's II-XII intact bilaterally, no focal motor deficits, no sensory deficits noted and deep tendon reflexes 2+ bilaterally Motor Exam: strength 5/5 throughout Psych Psych Narrative: tearful Attitude: agitated Mood & Affect: anxious Assessment & Plan Assessment/Plan (1) Acute alcohol intoxication: PLAN: Plan #Acute alcohol withdrawal * Patient currently on alcohol drawl protocol with phenobarbital. * On thiamine, folic acid and Multivite. Monitor CIWA score. * Adjunctive meds for symptomatic relief. * #Anxiety * Patient is very anxious and is tearful because of anxiety. She says she often has panic attacks but does not take anything for it outside of the hospital and just gayle her way through. * on ativan prn as part of the alcohol withdrawal protocol * # Type 2 diabetes mellitus: On Lantus. Insulin Sliding scale. Accu-Cheks ACHS. #Benign essential hypertension: #Hyponatremia: #DVT prophylaxis: Low risk. Encourage ambulation Charges/Coding Visit Charges Inpatient E&M: 34789 Subs Hosp L2
[2024-03-31] MEDS: Insulin Lispro 100 UNIT/ML INSULN.PEN SC (12:11)
--- NOTE | 2024-03-31 12:13 | CASEMGMT ---
Social Work SW spoke w/pt, gave her resources as she is self pay. Kaitlin is planning to see pt later today, SW let pt know. SW remains available for any additional resources. ARIANNA Wilder
--- NOTE | 2024-03-31 12:27 | ADDICTION ---
This clinical writer met with PT to conduct ASAM, MSE, AUDIT, DUDIT assessments and to plan for d/c. PT A+Ox4 and participated actively. All assessments completed. PT plans to f/u with EMDR treatment services, however she wanted to discuss it with her family upon d/c. This worker offered resources. PT did not indicate a need for transportation post d/c from [facility].
[2024-03-31 12:33] LABS: Bedside Glucose 172 mg/dL (74-106)
[2024-03-31 16:44] LABS: Bedside Glucose 126 mg/dL (74-106)
[2024-03-31 17:17] VITALS: BP 118/85; PULSE 82; RESP 18; TEMP 36.7; O2SAT 98
[2024-03-31] MEDS: traZODone 50 MG Tablet 100 MG PO (21:34)
[2024-03-31] MEDS: Ibuprofen 600 MG Tablet PO (21:34)
[2024-03-31 21:38] VITALS: BP 113/79; PULSE 77; RESP 16; TEMP 36.6; O2SAT 99
[2024-03-31 22:00] VITALS: BP 113/79; PULSE 77; RESP 16; TEMP 36.6; O2SAT 99
[2024-04-01] MEDS: Phenobarbital 32.4 MG Tablet 64.8 MG PO ×6 (00:22→20:56)
[2024-04-01 05:00] VITALS: BP 97/67; PULSE 77; RESP 16; TEMP 36.8; O2SAT 98
[2024-04-01] MEDS: Levothyroxine 75 MCG Tablet PO (06:39)
[2024-04-01 08:03] VITALS: BP 94/63; PULSE 58; RESP 16; TEMP 36.9; O2SAT 97
[2024-04-01 08:08] VITALS: PULSE 58
[2024-04-01] MEDS: Folic Acid 1 MG Tablet PO (08:20)
[2024-04-01] MEDS: Thiamine Hydrochloride 100 MG Tablet PO (08:20)
[2024-04-01] MEDS: Glimepiride 2 MG Tablet PO ×2 (08:21→17:07)
[2024-04-01] MEDS: Gabapentin 300 MG Capsule PO ×2 (10:31→18:54)
[2024-04-01] MEDS: Lisinopril 2.5 MG Tablet PO (10:31)
[2024-04-01] MEDS: Atorvastatin Calcium 10 MG Tablet 5 MG PO (10:33)
[2024-04-01] MEDS: Empagliflozin 10 MG Tablet PO (10:34)
--- NOTE | 2024-04-01 10:44 | PN_ITS ---
Subjective Subjective Patient seen and examined. She had no active complaints. Review of systems is otherwise negative. She said her anxiety was much much better today because she had talked herself through it. Objective Data Objective Data Vital Signs: Vital Signs Temp Pulse Resp BP Pulse Ox O2 Del Method 98.5 F 58 L 16 94/63 97 Room Air 04/01/24 08:03 04/01/24 08:08 04/01/24 08:03 04/01/24 08:03 04/01/24 08:03 04/01/24 08:03 Oxygen Delivery Method Room Air Weight: 106 lb 7.732 oz Body Mass Index (BMI) 18.8 Intake & Output: Intake and Output for Last 24 Hours 03/30/24 03/31/24 04/01/24 23:59 23:59 23:59 Intake Total 580 / 580 Balance 580 / 580 Medical Nutrition Assessment Dietitian: Malnutrition Criteria Met Start: 03/30/24 17:21 Freq: Status: Active Protocol: Document 03/30/24 17:21 RMA (Rec: 03/30/24 17:21 RMA [id number]) Nutrition Malnutrition Evidence of Malnutrition Exists Yes Malnutrition (severe): Chronic,Social/Behavioral/ Environmental Evidenced By Suboptimal Energy Intake ( Severe),Weight Loss (Severe), Physical Changes (Moderate) Clinical Problem Chronic Disease or Condition Related Malnutrition Etiology severe protein-calorie malnutrition in the context of chronic disease/social circumstance related to alcohol abuse and inadequate energy/protein/oral intake Signs/Symptoms as evidenced by PO meeting less than 50% estimated nutrition needs x 6 months, BMI 18.9, unintentional weight loss ~12% x 6 months and + NFPE with moderate muscle wasting and fat depletion in the clavicle, face, orbital, arms and legs Status Active Problem Recommendation Dietitian Recommendations/Changes Will adjust diet to 1800 calorie, consistent carbohydrate. Will add 240mL glucerna shake w/ breakfast. Will add extra 1-2 oz meat/ protein Q meal. Lab / Micro Data 03/30/24 13:05 03/31/24 04:40 Labs: Laboratory Results - last 24 hr 03/31/24 12:08: POC Glucose 172 H 03/31/24 16:23: POC Glucose 126 H Physical Exam Const alert, oriented x3, no apparent distress, average body habitus and healthy appearing General Appearance: cooperative, well kempt and well developed Orientation / Consciousness: awake, oriented to person, oriented to place and oriented to time HEENT normocephalic, head/scalp atraumatic, hearing grossly normal bilaterally, moist oral mucous membranes and oropharynx normal Eyes PERRL, EOMs intact bilaterally and conjunctivae normal Neck no lymphadenopathy, supple, no JVD, thyroid normal and no carotid bruits General: trachea midline Lymph Lymphatic: no lymphadenopathy noted and no lymphedema noted Resp normal respiratory effort, normal air movement, no retractions, no use of accessory muscles and clear to auscultation bilaterally Auscultation: Negative for rales, rhonchi or wheezes Cardio regular rate, regular rhythm, S1 normal heart sound, S2 normal heart sound, no murmurs, no rub and no gallops GI normal to inspection, nondistended, normoactive bowel sounds, soft to palpation, non-tender and non-distended Extremity normal capillary refill, no clubbing, cyanosis or edema and no calf tenderness General Extremity: no tenderness to palpation of joints or extremities Skin no rashes or lesions noted General Skin Exam: no breakdown Neuro oriented x3, CN's II-XII intact bilaterally, moves all extremities, no focal motor deficits, no sensory deficits noted and deep tendon reflexes 2+ bilaterally Sensorium / Orientation: awake and alert Speech: speech normal Motor Exam: strength 5/5 throughout Psych thought process normal and cooperative Appearance: appropriate Assessment & Plan Assessment/Plan (1) Acute alcohol intoxication: PLAN: Plan #Acute alcohol withdrawal * Patient currently on alcohol drawl protocol with phenobarbital. * On thiamine, folic acid and Multivite. Monitor CIWA score. * Adjunctive meds for symptomatic relief. * #Anxiety * stable, and feels much better today. * on ativan prn as part of the alcohol withdrawal protocol * # Type 2 diabetes mellitus: On empagliflozin and glimepiride. Insulin Sliding scale. Accu-Cheks ACHS. #Benign essential hypertension: on llisinopril #Hyponatremia:resolved. #DVT prophylaxis: Low risk. Encourage ambulation Charges/Coding Visit Charges Inpatient E&M: 28874 Subs Hosp L2
[2024-04-01 11:35] LABS: Bedside Glucose 118 mg/dL (74-106)
[2024-04-01 12:04] LABS: Bedside Glucose 191 mg/dL (74-106)
[2024-04-01] MEDS: hydrOXYzine PAM 25 MG Capsule 50 MG PO (14:18)
[2024-04-01 16:45] LABS: Bedside Glucose 160 mg/dL (74-106)
[2024-04-01 17:47] VITALS: BP 99/64; PULSE 71; RESP 16; TEMP 37.2; O2SAT 97
[2024-04-01 20:52] VITALS: BP 100/62; PULSE 70; RESP 16; TEMP 36.6; O2SAT 96
[2024-04-01] MEDS: traZODone 50 MG Tablet 100 MG PO (20:58)
[2024-04-01 21:12] VITALS: BP 100/62; PULSE 81; RESP 16; TEMP 36.6; O2SAT 96
[2024-04-02 01:50] VITALS: BP 91/63; PULSE 73; RESP 16; TEMP 36.6; O2SAT 96
[2024-04-02 06:33] VITALS: BP 100/67; PULSE 71; RESP 16; TEMP 36.6; O2SAT 98
[2024-04-02] MEDS: Phenobarbital 32.4 MG Tablet 64.8 MG PO ×2 (06:41→13:16)
[2024-04-02] MEDS: Levothyroxine 75 MCG Tablet PO (06:41)
[2024-04-02 07:18] LABS: Bedside Glucose 105 mg/dL (74-106)
[2024-04-02] MEDS: Folic Acid 1 MG Tablet PO (09:19)
[2024-04-02] MEDS: Glimepiride 2 MG Tablet PO (09:19)
[2024-04-02] MEDS: Thiamine Hydrochloride 100 MG Tablet PO (09:20)
[2024-04-02] MEDS: Atorvastatin Calcium 10 MG Tablet 5 MG PO (09:20)
[2024-04-02] MEDS: Empagliflozin 10 MG Tablet PO (09:20)
[2024-04-02 09:38] VITALS: BP 110/65; PULSE 80; RESP 16; TEMP 36.8
--- NOTE | 2024-04-02 10:11 | DS.PCM_ITS ---
Providers Date of Admission: 03/30/24 Date of Discharge: 04/02/24 Primary Care Physician: Ellen Lao MD Reason For Visit: ETOH ABUSE, DETOX,, HX OF DM Diagnosis Discharge Diagnosis (1) Acute alcohol intoxication: Status: Acute Code(s): F10.929 - Alcohol use, unspecified with intoxication, unspecified Plan #Acute alcohol withdrawal * Patient currently on alcohol drawl protocol with phenobarbital. * On thiamine, folic acid and Multivite. Monitor CIWA score. * Adjunctive meds for symptomatic relief. * #Anxiety * stable, and feels much better today. * on ativan prn as part of the alcohol withdrawal protocol * # Type 2 diabetes mellitus: On empagliflozin and glimepiride. Insulin Sliding scale. Accu-Cheks ACHS. #Benign essential hypertension: on llisinopril #Hyponatremia:resolved. #DVT prophylaxis: Low risk. Encourage ambulation Medications at Discharge Home Medications atorvastatin 10 mg tablet 5 mg PO DAILY 10/15/23 empagliflozin 10 mg tablet (Jardiance) 10 mg PO DAILY 10/15/23 glimepiride 4 mg tablet 2 mg PO BID 10/15/23 levothyroxine 75 mcg tablet (Synthroid) 75 mcg PO DAILY 10/15/23 lisinopril 2.5 mg tablet 2.5 mg PO DAILY 10/15/23 biotin 10,000 mcg capsule 10,000 mcg PO DAILY 10/29/23 cholecalciferol (vitamin D3) 25 mcg (1,000 unit) chewable tablet (Vitamin D3) 10,000 unit PO DAILY 10/29/23 cyanocobalamin (vitamin B-12) 1,000 mcg tablet (Vitamin B-12) 5,000 mcg PO DAILY 10/29/23 ginkgo biloba 60 mg tablet 60 mg PO DAILY 10/29/23 multivitamin with minerals-folic acid 12 mcg chewable tablet (Centrum Adults) 1 tab PO DAILY 10/29/23 vitamin B complex (Complex B-100 tablet,extended release) 1 tab PO DAILY 10/29/23 ibandronate 150 mg tablet 150 mg PO .COMPLEX 03/30/24 Hospital Course Operations None Procedures None Summary of Care Provided Minutes Spent on Discharge: 45 Hospital Course: Patient is a 63-year-old female with a past medical history as outlined including alcohol abuse was admitted through the ED on 03/30/2024 for acute alcohol withdrawal and requesting detox. She had been drinking heavily for 2 weeks prior to admission and was sober for a while but then subsequently relapsed. Last drink was on the morning of admission. Labs were significant for sodium of 129 and liver enzymes are mildly elevated. Urine tox was positive for cannabinoids and serum alcohol level was 183. She was admitted and managed for acute alcohol withdrawal. She was started on alcohol withdrawal protocol with phenobarbital. He tolerated the 3-day detox process. She was discharged home on 04/02/2024. She is to follow-up with her primary care doctor within 1 to 2 weeks. Of note her hospital course was complicated by anxiety which made patient tearful. She was not on anything for anxiety and said she worked through it in her mind to be able to pass through it. She was to follow-up with her primary care doctor on outpatient basis for referral to psychiatry as needed for management of her anxiety. Patient seen and examined prior to discharge. She felt well and had no complaints. She had an uneventful night. Review of systems otherwise negative. Labs and vitals reviewed. Home medication reviewed and reconciled. Physical Exam Const alert, oriented x3, no apparent distress and average body habitus General Appearance: cooperative, comfortable, well kempt and well developed Orientation / Consciousness: awake, oriented to person, oriented to place and oriented to time HEENT normocephalic, head/scalp atraumatic, hearing grossly normal bilaterally, moist oral mucous membranes and oropharynx normal Mouth: oral and palatal mucosa normal Eyes PERRL, EOMs intact bilaterally and conjunctivae normal Neck no lymphadenopathy, supple, no JVD, thyroid normal and no carotid bruits General: trachea midline Lymph Lymphatic: no lymphadenopathy noted and no lymphedema noted Resp normal respiratory effort, normal air movement, no retractions, no use of accessory muscles and clear to auscultation bilaterally Auscultation: Negative for rales, rhonchi or wheezes Cardio regular rate, regular rhythm, S1 normal heart sound, S2 normal heart sound, no murmurs, no rub and no gallops GI normal to inspection, nondistended, normoactive bowel sounds, soft to palpation, non-tender and non-distended Extremity normal to inspection, full ROM, normal capillary refill, no clubbing, cyanosis or edema and no calf tenderness General Extremity: no tenderness to palpation of joints or extremities Skin no rashes or lesions noted General Skin Exam: no breakdown Neuro oriented x3, CN's II-XII intact bilaterally, moves all extremities, no focal motor deficits, no sensory deficits noted and deep tendon reflexes 2+ bilaterally Sensorium / Orientation: awake and alert Speech: speech normal Motor Exam: strength 5/5 throughout Psych thought process normal and cooperative Psych Narrative: tearful Appearance: appropriate Medical Records Data Medical Nutrition Assessment Dietitian: Malnutrition Criteria Met Start: 03/30/24 17:21 Freq: Status: Active Protocol: Document 03/30/24 17:21 RMA (Rec: 03/30/24 17:21 RMA [id number]) Nutrition Malnutrition Evidence of Malnutrition Exists Yes Malnutrition (severe): Chronic,Social/Behavioral/ Environmental Evidenced By Suboptimal Energy Intake ( Severe),Weight Loss (Severe), Physical Changes (Moderate) Clinical Problem Chronic Disease or Condition Related Malnutrition Etiology severe protein-calorie malnutrition in the context of chronic disease/social circumstance related to alcohol abuse and inadequate energy/protein/oral intake Signs/Symptoms as evidenced by PO meeting less than 50% estimated nutrition needs x 6 months, BMI 18.9, unintentional weight loss ~12% x 6 months and + NFPE with moderate muscle wasting and fat depletion in the clavicle, face, orbital, arms and legs Status Active Problem Recommendation Dietitian Recommendations/Changes Will adjust diet to 1800 calorie, consistent carbohydrate. Will add 240mL glucerna shake w/ breakfast. Will add extra 1-2 oz meat/ protein Q meal. Weight / BMI Weight Weight: 106 lb 7.732 oz Body Mass Index (BMI) 18.8 ABG / Lab / Microbiology Data 03/30/24 13:05 03/31/24 04:40 Laboratory: Laboratory Results - last 24 hr 04/01/24 06:36: POC Glucose 118 H 04/01/24 11:21: POC Glucose 191 H 04/01/24 16:22: POC Glucose 160 H 04/02/24 06:40: POC Glucose 105 D/C Instructions Discharge Diet: Low fat / Low cholesterol Discharge Activity: Return to Normal Activity Weight Bearing Status: Weight bearing as tolerated Call your doctor if you observe: Fever of 101 or Higher, Shortness of breath, Dizziness, Swelling in the ankles and Chest pain Meaningful Use Info Meaningful Use Meaningful Use Diagnoses (Choose all that apply): None applicable Ischemic Stroke Statin Dosing Therapy Reference: STATIN DOSE THERAPY REFERENCE: * Patients > 75 years receive moderate or high dose statin therapy. * Patients 75 years or YOUNGER should receive HIGH intensity statin dose unless contraindicated. You will be required to document reason for non-treatment if statin daily dose does not meet guidelines. HIGH DOSE STATIN THERAPY DAILY Atorvastatin > than or = to 40 mg Rosuvastatin > than or = to 20 mg Amlodipine + Atorvastatin > than or = to 2.5/40 mg Ezetimibe + Simvastatin 10/80 mg Simvastatin 80mg Discharge Plan Admission Admit Date/Time: 03/30/24 14:26 Primary Reason for Your Visit: acute alcohol withdrawal Attending Provider: Marcie Houston Primary Care Provider: Ellen Lao Consulting Providers: Narinder Zapata Patient Instructions: Alcohol Addiction, Alcohol Withdrawal: What to Expect, Addiction: Your Treatment Options Discharge Orders/Prescriptions Prescriptions: Continued lisinopril 2.5 mg tablet 2.5 mg PO DAILY glimepiride 4 mg tablet 2 mg PO BID Jardiance 10 mg tablet 10 mg PO DAILY atorvastatin 10 mg tablet 5 mg PO DAILY levothyroxine [Synthroid] 75 mcg tablet 75 mcg PO DAILY Centrum Adults 12 mcg tablet,chewable 1 tab PO DAILY Complex B-100 Tablet Extended Release 1 tab PO DAILY cholecalciferol (vitamin D3) [Vitamin D3] 25 mcg (1,000 unit) tablet,chewable 10,000 unit PO DAILY biotin 10,000 mcg capsule 10,000 mcg PO DAILY ginkgo biloba 60 mg tablet 60 mg PO DAILY Rx Instructions: give with meal/snack cyanocobalamin (vitamin B-12) [Vitamin B-12] 1,000 mcg tablet 5,000 mcg PO DAILY ibandronate 150 mg tablet 150 mg PO .COMPLEX Rx Instructions: 150 mg orally; take 1 tablet (150 mg) by oral route once a month (same date) with a full glass of water and remain in upright position at least 1 hour. Referrals / Follow Up: Ellen Lao MD [Primary Care Provider] - Within 1 Week Disposition Disposition (needs filled in before D/C Order can be placed): Home, Self Care Charges/Coding Visit Charges Inpatient E&M: 96143 Disch Hosp >30min
--- NOTE | 2024-04-02 11:17 | PHA.DC.MR.R ---
Pharmacy [place] Med Reconciliation Pharmacy Service has performed discharge medication reconciliation for this patient. The patient's discharge medication list was reviewed for discrepancies and discrepancies were resolved. Medications at Discharge Home Medications atorvastatin 10 mg tablet 5 mg PO DAILY 10/15/23 empagliflozin 10 mg tablet (Jardiance) 10 mg PO DAILY 10/15/23 glimepiride 4 mg tablet 2 mg PO BID 10/15/23 levothyroxine 75 mcg tablet (Synthroid) 75 mcg PO DAILY 10/15/23 lisinopril 2.5 mg tablet 2.5 mg PO DAILY 10/15/23 biotin 10,000 mcg capsule 10,000 mcg PO DAILY 10/29/23 cholecalciferol (vitamin D3) 25 mcg (1,000 unit) chewable tablet (Vitamin D3) 10,000 unit PO DAILY 10/29/23 cyanocobalamin (vitamin B-12) 1,000 mcg tablet (Vitamin B-12) 5,000 mcg PO DAILY 10/29/23 ginkgo biloba 60 mg tablet 60 mg PO DAILY 10/29/23 multivitamin with minerals-folic acid 12 mcg chewable tablet (Centrum Adults) 1 tab PO DAILY 10/29/23 vitamin B complex (Complex B-100 tablet,extended release) 1 tab PO DAILY 10/29/23 ibandronate 150 mg tablet 150 mg PO .COMPLEX 03/30/24
[2024-04-02 13:00] VITALS: BP 124/70; PULSE 78; RESP 16; TEMP 37.1; O2SAT 98
[2024-04-02 16:29] LABS: Bedside Glucose 101 mg/dL (74-106)
== END 2024-04-02 13:33 | disposition home or self-care (01) | DRG 896 ==
LOC: ED 14:08 → ICU 14:34 → MS3 03-31 16:01
PROVIDERS: Admitting Provider Internal Medicine; Emergency Provider Emergency Medicine; PCP Family Medicine; Visit Provider Student in an Organized Health Care Education/Training Program
DX: F10.139 Alcohol abuse with withdrawal, unspecified (principal); E43 Unspecified severe protein-calorie malnutrition; E87.1 Hypo-osmolality and hyponatremia; Z68.1 Body mass index [BMI] 19.9 or less, adult; E11.9 Type 2 diabetes mellitus without complications; I10 Essential (primary) hypertension; E03.9 Hypothyroidism, unspecified; F10.129 Alcohol abuse with intoxication, unspecified; F41.9 Anxiety disorder, unspecified; E78.00 Pure hypercholesterolemia, unspecified; Z87.891 Personal history of nicotine dependence; Z79.84 Long term (current) use of oral hypoglycemic drugs; Z79.899 Other long term (current) drug therapy; Y90.6 Blood alcohol level of 120-199 mg/100 ml
CPT/HCPCS: 36415; 80048; 80053; 80307; 82077; 82962; 83690; 85025; 97802; 97803; 99284; 99406; J7030; A4216

== ENCOUNTER 2024-07-01 14:30 | Inpatient (IN) | payer SELFPAY ==
[2024-07-01] VITALS (7 sets, daily range): BP systolic 98–157; BP diastolic 55–94; PULSE 75–98; RESP 16–20; TEMP 36.3–37.1; O2SAT 94–99; BMI 19.4; BMI 22.5
[2024-07-01] MEDS: Ondansetron 4 MG/2 ML Vial IM (15:29)
[2024-07-01] MEDS: LORazepam 2 MG/ML Syringe IM (15:29)
[2024-07-01 15:42] LABS: Absolute Lymphocyte Count 1.02 X10^3/uL (0.83-4.51); Absolute Neutrophil Count 4.1 X10^3/uL (2.0-7.7); Basophil# 0.05 X10^3/uL; Basophil% 0.9 % (0-1); Hematocrit 37.9 % (37-47); Hemoglobin 13.2 g/dL (12.0-15.0); Lymphocyte # 1.02 X10^3/ul (0.83-4.51); Lymphocyte % 18.6 % (19-41); Mean Corp Hgb Conc 34.8 g/dL (32-36); Mean Corpuscular Hgb 32.1 pg (27.0-32.0); Mean Corpuscular Volume 92.2 fL (81-99); Mean Platelet Vol. 8.9 fl (6.2-12.0); Monocyte# 0.33 X10^3/uL; NRBC Flagged by Analyzer 0 % (0-5); Neutrophil # 4.06 X10^3/uL (2.7-7.7); Neutrophil % 74.1 % (47-70); Platelet Count 127 K/mm3 (150-450); RBC Distribution Width CV 13.5 % (11.6-14.6); RBC Distribution Width SD 45.3 fl (35.1-43.9); Red Blood Count 4.11 M/mm3 (4.2-5.4); White Blood Count 5.5 K/mm3 (4.4-11.0)
[2024-07-01] MEDS: 0.9% Normal Saline (1000mL) 1,000 ML 999 ML IV (15:49)
[2024-07-01] MEDS: Phenobarbital Sodium 130 MG/ML Vial 150 MG IV (15:49)
[2024-07-01] MEDS: Folic Acid 1 MG Tablet PO (15:49)
[2024-07-01] MEDS: Thiamine Hydrochloride 100 MG Tablet PO (15:49)
[2024-07-01 15:59] LABS: ALB/GLOB Ratio 1.1 RATIO (0.9-2.4); AST(SGOT) 94 U/L (15-37); Alanine Aminotransfer ALT/SGPT 103 U/L (13-56); Albumin, Serum 3.9 g/dL (3.2-5.0); Alkaline Phosphatase 272 U/L (45-117); Anion Gap 17 (5-15); BUN 8 mg/dL (7-18); BUN/Creat Ratio 12.8 RATIO (10-20); Calcium,Total 8.2 mg/dL (8.5-10.1); Chloride 93 mmol/L (98-107); Creatinine, Serum 0.63 mg/dL (0.55-1.02); EST Glomerular Filtration Rate 102 mL/min (>60); Est Glom Filt Rate - Afr Amer 124 mL/min (>60); Estimated Creatinine Clearance 72.64 ml/min; Globulin 3.6 g/dL (2.2-4.2); Glucose 141 mg/dL (74-106); Potassium 3.4 mmol/L (3.5-5.1); Protein, Total 7.5 g/dL (6.4-8.2); Sodium Level 132 mmol/L (136-145)
[2024-07-01 16:20] LABS: Prothrombin Time (Protime)PT. 13.1 SECONDS (11.7-14.9)
[2024-07-01 16:21] LABS: Partial Thromboplast Time 29.6 Seconds (24.1-36.2)
[2024-07-01 16:26] LABS: Amphetamine Urine VISTA NEGATIVE (<1000 ng/mL); Barbiturate Urine VISTA NEGATIVE (< 200 ng/mL); Benzodiazepine Urine VISTA NEGATIVE (< 200 ng/mL); Cocaine Urine VISTA NEGATIVE (< 300 ng/mL); Ecstacy Urine VISTA NEGATIVE (< 500 ng/mL); Methadone Urine VISTA NEGATIVE (< 300 ng/mL); PCP Urine VISTA NEGATIVE (< 25 ng/mL); THC Urine VISTA NEGATIVE (< 50 ng/mL); Vista UDS pH Range 6
[2024-07-01] MEDS: Potassium Chloride Oral Tablet 20 MEQ 40 MEQ PO (20:07)
[2024-07-01] MEDS: Phenobarbital 32.4 MG Tablet 64.8 MG PO ×2 (20:07→23:13)
[2024-07-01] MEDS: 0.9% Normal Saline (1000mL) 1,000 ML 100 ML IV (20:08)
[2024-07-01] MEDS: traZODone 100 MG Tablet PO (20:41)
[2024-07-02 00:42] LABS: Bedside Glucose 132 mg/dL (74-106)
[2024-07-02 00:42] LABS: Bedside Glucose 65 mg/dL (74-106)
[2024-07-02 02:33] VITALS: BP 118/66; PULSE 85; RESP 18; TEMP 36.8; O2SAT 97
[2024-07-02 02:36] VITALS: BP 118/66; PULSE 85; RESP 18; TEMP 36.8; O2SAT 97
[2024-07-02] MEDS: Phenobarbital 32.4 MG Tablet 64.8 MG PO ×6 (02:39→23:36)
[2024-07-02 06:00] VITALS: BP 125/69; PULSE 84; RESP 16; TEMP 37; O2SAT 98
[2024-07-02] MEDS: Levothyroxine 75 MCG Tablet PO (06:15)
[2024-07-02 07:08] LABS: Bedside Glucose 84 mg/dL (74-106)
[2024-07-02 07:28] LABS: Absolute Lymphocyte Count 0.88 X10^3/uL (0.83-4.51); Absolute Neutrophil Count 2.8 X10^3/uL (2.0-7.7); Basophil# 0.03 X10^3/uL; Basophil% 0.7 % (0-1); Eosinophil# 0.05 X10^3/uL; Eosinophils% 1.2 % (0-5); Hematocrit 33.3 % (37-47); Hemoglobin 11.4 g/dL (12.0-15.0); Lymphocyte # 0.88 X10^3/ul (0.83-4.51); Mean Corp Hgb Conc 34.2 g/dL (32-36); Mean Corpuscular Hgb 32.6 pg (27.0-32.0); Mean Corpuscular Volume 95.1 fL (81-99); Mean Platelet Vol. 9.6 fl (6.2-12.0); Monocyte# 0.41 X10^3/uL; Monocyte% 9.8 % (0-10); NRBC Flagged by Analyzer 0 % (0-5); Neutrophil # 2.82 X10^3/uL (2.7-7.7); Neutrophil % 67.1 % (47-70); POSITIVE COUNT YES; Platelet Count 92 K/mm3 (150-450); RBC Distribution Width CV 13.8 % (11.6-14.6); RBC Distribution Width SD 47.9 fl (35.1-43.9); White Blood Count 4.2 K/mm3 (4.4-11.0)
[2024-07-02 07:29] LABS: Differential Indicated SCAN CRITERIA MET
[2024-07-02 07:31] LABS: Prothrombin Time (Protime)PT. 13.6 SECONDS (11.7-14.9)
[2024-07-02 07:56] LABS: ALB/GLOB Ratio 1.1 RATIO (0.9-2.4); AST(SGOT) 55 U/L (15-37); Alanine Aminotransfer ALT/SGPT 70 U/L (13-56); Albumin, Serum 3.2 g/dL (3.2-5.0); Alkaline Phosphatase 195 U/L (45-117); Anion Gap 10 (5-15); BUN 9 mg/dL (7-18); BUN/Creat Ratio 17.6 RATIO (10-20); Calcium,Total 7.9 mg/dL (8.5-10.1); Chloride 104 mmol/L (98-107); Creatinine, Serum 0.51 mg/dL (0.55-1.02); EST Glomerular Filtration Rate 130 mL/min (>60); Est Glom Filt Rate - Afr Amer 157 mL/min (>60); Estimated Creatinine Clearance 94.61 ml/min; Globulin 2.9 g/dL (2.2-4.2); Glucose 71 mg/dL (74-106); Magnesium 1.9 mg/dL (1.6-2.6); Potassium 3.8 mmol/L (3.5-5.1); Protein, Total 6.1 g/dL (6.4-8.2); Sodium Level 136 mmol/L (136-145)
[2024-07-02 08:10] LABS: Phosphorus 2.8 mg/dL (2.5-4.9)
[2024-07-02 08:13] LABS: Platelet Estimate MOD DEC (ADEQ)
[2024-07-02 08:24] VITALS: BP 132/80; PULSE 91; RESP 18; TEMP 36.7; O2SAT 98
[2024-07-02] MEDS: Folic Acid 1 MG Tablet PO (08:29)
[2024-07-02] MEDS: Thiamine Hydrochloride 100 MG Tablet PO (08:29)
[2024-07-02] MEDS: hydrOXYzine PAM 25 MG Capsule 50 MG PO ×2 (11:44→16:07)
[2024-07-02] MEDS: Insulin Lispro 100 UNIT/ML INSULN.PEN SC ×3 (11:45→22:36)
[2024-07-02] MEDS: Enoxaparin 40 MG/0.4 ML Syringe SC (11:45)
[2024-07-02 11:55] LABS: Bedside Glucose 179 mg/dL (74-106)
[2024-07-02 14:24] VITALS: BP 135/81; PULSE 80; RESP 16; TEMP 36.6; O2SAT 98
[2024-07-02 16:24] LABS: Bedside Glucose 226 mg/dL (74-106)
[2024-07-02 20:23] VITALS: BP 149/111; PULSE 91; RESP 18; TEMP 36.8; O2SAT 100
[2024-07-02] MEDS: traZODone 100 MG Tablet PO (22:36)
[2024-07-02 23:36] LABS: Bedside Glucose 265 mg/dL (74-106)
[2024-07-03 02:38] VITALS: BP 132/85; PULSE 78; RESP 16; TEMP 37.1; O2SAT 96
[2024-07-03] MEDS: Phenobarbital 32.4 MG Tablet 64.8 MG PO ×4 (02:41→14:49)
[2024-07-03] MEDS: Levothyroxine 75 MCG Tablet PO (06:23)
[2024-07-03 06:48] LABS: Bedside Glucose 119 mg/dL (74-106)
[2024-07-03 08:25] VITALS: BP 123/80; PULSE 93; RESP 18; TEMP 36.6; O2SAT 98
[2024-07-03] MEDS: Enoxaparin 40 MG/0.4 ML Syringe SC (08:31)
[2024-07-03] MEDS: Thiamine Hydrochloride 100 MG Tablet PO (08:31)
[2024-07-03] MEDS: Folic Acid 1 MG Tablet PO (08:31)
[2024-07-03] MEDS: Insulin Lispro 100 UNIT/ML INSULN.PEN SC (11:35)
[2024-07-03 11:56] LABS: Bedside Glucose 238 mg/dL (74-106)
[2024-07-03 14:10] VITALS: BP 147/81; PULSE 69; RESP 18; TEMP 36.6; O2SAT 96
== END 2024-07-03 15:47 | disposition left against medical advice (07) | DRG 894 ==
LOC: ED 14:58 → MS3 18:34
PROVIDERS: Admitting Provider Internal Medicine; Emergency Provider Surgery; PCP Family Medicine; Visit Provider Family Medicine
DX: F10.139 Alcohol abuse with withdrawal, unspecified (principal); E43 Unspecified severe protein-calorie malnutrition; D61.818 Other pancytopenia; E87.1 Hypo-osmolality and hyponatremia; Z68.1 Body mass index [BMI] 19.9 or less, adult; E11.9 Type 2 diabetes mellitus without complications; K70.10 Alcoholic hepatitis without ascites; E03.9 Hypothyroidism, unspecified; F32.A Depression, unspecified; E87.6 Hypokalemia; F41.9 Anxiety disorder, unspecified; Z53.29 Procedure and treatment not carried out because of patient's decision for other reasons; Z79.84 Long term (current) use of oral hypoglycemic drugs; Z79.899 Other long term (current) drug therapy; Z87.891 Personal history of nicotine dependence; Y90.8 Blood alcohol level of 240 mg/100 ml or more
CPT/HCPCS: 36415; 80053; 80307; 82077; 82962; 83735; 84100; 85025; 85610; 85730; 93005; 99285; J7030; A4216; J2405

== ENCOUNTER 2024-09-25 16:50 | Inpatient (IN) | payer SELFPAY ==
[2024-09-25 16:51] VITALS: BP 132/83; PULSE 82; RESP 16; TEMP 37; O2SAT 100
[2024-09-25 17:26] LABS: Absolute Lymphocyte Count 0.73 X10^3/uL (0.83-4.51); Basophil# 0.06 X10^3/uL; Basophil% 0.8 % (0-1); Hematocrit 43.9 % (37-47); Lymphocyte # 0.73 X10^3/ul (0.83-4.51); Lymphocyte % 9.1 % (19-41); Mean Corp Hgb Conc 34.2 g/dL (32-36); Mean Corpuscular Hgb 32.1 pg (27.0-32.0); Mean Platelet Vol. 9.2 fl (6.2-12.0); Monocyte# 0.21 X10^3/uL; Monocyte% 2.6 % (0-10); NRBC Flagged by Analyzer 0 % (0-5); Neutrophil # 6.95 X10^3/uL (2.7-7.7); Neutrophil % 87.1 % (47-70); Platelet Count 153 K/mm3 (150-450); RBC Distribution Width CV 13.8 % (11.6-14.6); RBC Distribution Width SD 47.5 fl (35.1-43.9); Red Blood Count 4.67 M/mm3 (4.2-5.4)
[2024-09-25 17:34] LABS: Anion Gap 19 (5-15); BUN 12 mg/dL (7-18); BUN/Creat Ratio 16.6 RATIO (10-20); Calcium,Total 8.6 mg/dL (8.5-10.1); Chloride 97 mmol/L (98-107); Creatinine, Serum 0.72 mg/dL (0.55-1.02); EST Glomerular Filtration Rate 87 mL/min (>60); Est Glom Filt Rate - Afr Amer 105 mL/min (>60); Glucose 129 mg/dL (74-106); Potassium 4.5 mmol/L (3.5-5.1); Sodium Level 135 mmol/L (136-145)
[2024-09-25 17:50] VITALS: BP 151/91; PULSE 84; RESP 18; O2SAT 96
--- NOTE | 2024-09-25 18:00 | EX.ED.SAOD ---
HPI History of Present Illness Chief Complaint: Substance Abuse Informant: patient Onset/Context/Timing Onset: Today Context: Gradual Onset Timing: Continuous Worsened by: Nothing Relieved by: Nothing Associated Symptoms Associated Symptoms: Positive for vomiting* and diarrhea*; Negative for fever*, rash*, seizure, tremor, palpatations, change in mental status, suicidal ideation or homicidal ideation Narrative Narrative: Patient presents requesting detox from alcohol. Patient states she drinks 4 white claws per day. Patient states her last drink was 10:30 AM today. Patient states she feels like she may started having some visual hallucinations and seizures. Patient states she has had these in the past but prior alcohol withdrawal. Patient admits to some nausea, vomiting, and diarrhea. Patient denies any chest pain or shortness of breath. Patient denies any fevers or chills. Patient was admitted for alcohol withdrawal in June but signed out AGAINST MEDICAL ADVICE. Patient also went through alcohol detox last March. [facility] Medical History Alcohol abuse Acute alcoholic hepatitis Acute alcohol intoxication Acute hyponatremia History of diabetes mellitus Admitted to alcohol detoxification center History of alcohol abuse Meniere disease Loss of hearing Wears hearing aid Wears glasses Post-menopausal Marijuana use Thyroid disease Low iron Fatty liver High cholesterol Dietary restriction Emphysema, unspecified Former smoker History of stress test Chronic alcoholism in remission Vitamin D deficiency Severe major depression Pancytopenia Iron deficiency anemia GERD (gastroesophageal reflux disease) Hypothyroid Hyperlipidemia DM w/o complication type II, uncontrolled Home Medications ?Medication ?Instructions ?Recorded ?Last Taken ?Type empagliflozin 10 mg tablet 10 mg PO DAILY 10/15/23 03/29/24 History (Jardiance) levothyroxine 75 mcg tablet 75 mcg PO DAILY 10/15/23 03/29/24 History (Synthroid) cholecalciferol (vitamin D3) 25 10,000 unit PO .weekly 10/29/23 03/29/24 History mcg (1,000 unit) chewable tablet (Vitamin D3) cyanocobalamin (vitamin B-12) 5,000 mcg PO DAILY 10/29/23 03/29/24 History 1,000 mcg tablet (Vitamin B-12) multivitamin with minerals-folic 1 tab PO DAILY 10/29/23 03/29/24 History acid 12 mcg chewable tablet (Centrum Adults) blood-glucose sensor (FreeStyle 09/25/24 Unknown History Ofe 3 Sensor device) Allergy/AdvReac Type Severity Reaction Status Date / Time metformin AdvReac NEEDS Verified 09/25/24 18:06 FOLLOW-UP Surgical History History of laparoscopy History of tonsillectomy History of cholecystectomy History of Hx of colonoscopy Social History household members: none and other details: Lives alone current occupational status: unemployed Smoking Status: Current some day smoker tobacco type: cigarettes alcohol intake: former substance use type: does not use EXAM Physical Exam Const Vital Signs: 09/25/24 16:51 09/25/24 17:50 09/25/24 18:03 Temperature 98.6 F Temperature Source Temporal Pulse Rate 82 84 81 Respiratory Rate 16 18 16 Blood Pressure 132/83 H 151/91 H 151/91 H Blood Pressure Mean 99 111 111 Blood Pressure Source Monitor Blood Pressure Position Semi-Fowlers Blood Pressure Location Left Arm Pulse Ox 100 96 95 Oxygen Delivery Method Room Air Room Air Room Air MDM MDM MDM Narrative Medical decision making narrative: Medical screening labs will be obtained. CBC will be obtained to assess for leukocytosis and anemia. Basic metabolic profile will be obtained to assess for electrolyte abnormality and renal function. Serum alcohol level will be obtained to assess for alcohol intoxication. Urine drug screen will be obtained to assess for substance abuse. Lab Data Attestation: I reviewed the patient's lab results. Lab results narrative: CBC was reviewed and was within normal limits. Basic metabolic profile was reviewed. CO2 was low at 19, sodium was slightly low at 135, and chloride was slightly low at 97. Anion gap was elevated at 19. Glucose was slightly elevated at 129. The remainder is within normal limits. Serum alcohol level was reviewed and was elevated at 362. Labs: Laboratory Results - last 24 hr 09/25/24 17:01 WBC 8.0 RBC 4.67 Hgb 15.0 Hct 43.9 MCV 94.0 MCH 32.1 H MCHC 34.2 RDW Std Deviation 47.5 H RDW Coeff of [place] 13.8 Plt Count 153 MPV 9.2 Immature Gran % (Auto) 0.400 Neut % (Auto) 87.1 H Lymph % (Auto) 9.1 L [place] % (Auto) 2.6 Eos % (Auto) 0.0 Baso % (Auto) 0.8 Absolute Neuts (auto) 7.0 Absolute Lymphs (auto) 0.73 L Nucleated RBC % 0 Sodium 135 L Potassium 4.5 Chloride 97 L Carbon Dioxide 19.0 L Anion Gap 19 H BUN 12 Creatinine 0.72 Est GFR (MDRD) Af Amer 105 Est GFR (MDRD) Non-Af 87 BUN/Creatinine Ratio 16.6 Glucose 129 H Calcium 8.6 Ethyl Alcohol 362.0 H* Management Discussion w/another healthcare provider: Hospitalist Treatment and Re-Evaluation Narrative: Patient was given a dose of phenobarbital here. Patient was given IV fluids. Case was discussed with the hospitalist. He will admit the patient to his service. Patient understood and was agreeable with the plan. All questions were answered. Discharge Plan Triage Chief Complaint: Substance Abuse ED Provider: Guero Hughes Dx/Rx/DC Orders Clinical Impression: Alcohol withdrawal, HTN (hypertension), Alcoholic ketoacidosis Prescriptions: No Action Jardiance 10 mg tablet 10 mg PO DAILY levothyroxine [Synthroid] 75 mcg tablet 75 mcg PO DAILY Centrum Adults 12 mcg tablet,chewable 1 tab PO DAILY cholecalciferol (vitamin D3) [Vitamin D3] 25 mcg (1,000 unit) tablet,chewable 10,000 unit PO .weekly cyanocobalamin (vitamin B-12) [Vitamin B-12] 1,000 mcg tablet 5,000 mcg PO DAILY (DME) FreeStyle Ofe 3 Sensor Device MISCELLANEOUS Patient Comments: Apply a new sensor every 14 days Primary Care Provider: Ellen Lao Referrals: Ellen Lao MD [Primary Care Provider] - Print Language: Setswana Disposition Disposition: Acute Care Hospital [facility]
[2024-09-25 18:03] VITALS: BP 151/91; PULSE 81; RESP 16; O2SAT 95
[2024-09-25 18:05] VITALS: BMI 19.4
[2024-09-25] MEDS: Phenobarbital 32.4 MG Tablet 64.8 MG PO ×3 (18:25→23:58)
[2024-09-25] MEDS: 0.9% Normal Saline (1000mL) 1,000 ML 1000 ML IV (18:26)
--- NOTE | 2024-09-25 18:28 | PCM.HP.STD ---
HPI - General General Date of Admission: 09/25/24 Date of Service: 09/25/24 Chief Complaint: Alcohol withdrawal requesting detox HPI Narrative JOSE RAMON MARTINEZ, is a 64 F who presented to [facility] ED on 09/25/2024 with alcohol withdrawal requesting detoxification. Patient was hospitalized here in June for the same concern. She completed some of her phenobarbital taper with good control of withdrawal symptoms. However, she left on hospital day 3 without completing the taper and signed out AGAINST MEDICAL ADVICE. Patient went back to drinking shortly after that discharge. came with her to the hospital today. Patient reports drinking 8 large white claws per day. Last drink was around 10 AM this morning. Alcohol level 365 in the ED. However, despite alcohol level patient reported feeling shaky and like she was having withdrawal symptoms. She was given a dose of p.o. phenobarbital and hospitalist was contacted for admission. I saw the patient at bedside in the ED, was present. Patient appeared agitated but it was difficult to tell if she was withdrawing or if she was still acutely intoxicated. She was slurring her speech at times but was answering questions with appropriate responses. She reported feeling very anxious currently as well as nauseous, and she was concerned about keeping the phenobarbital pills down. Had not had any vomiting episodes yet today. Denied any other acute concerns currently. Will be admitted for further management. [facility] Medical History Alcohol abuse Acute alcoholic hepatitis Acute alcohol intoxication Acute hyponatremia History of diabetes mellitus Admitted to alcohol detoxification center History of alcohol abuse Meniere disease Loss of hearing Wears hearing aid Wears glasses Post-menopausal Marijuana use Thyroid disease Low iron Fatty liver High cholesterol Dietary restriction Emphysema, unspecified Former smoker History of stress test Chronic alcoholism in remission Vitamin D deficiency Severe major depression Pancytopenia Iron deficiency anemia GERD (gastroesophageal reflux disease) Hypothyroid Hyperlipidemia DM w/o complication type II, uncontrolled Home Medications ?Medication ?Instructions ?Recorded ?Last Taken ?Type empagliflozin 10 mg tablet 10 mg PO DAILY 10/15/23 03/29/24 History (Jardiance) levothyroxine 75 mcg tablet 75 mcg PO DAILY 10/15/23 03/29/24 History (Synthroid) cholecalciferol (vitamin D3) 25 10,000 unit PO .weekly 10/29/23 03/29/24 History mcg (1,000 unit) chewable tablet (Vitamin D3) cyanocobalamin (vitamin B-12) 5,000 mcg PO DAILY 10/29/23 03/29/24 History 1,000 mcg tablet (Vitamin B-12) multivitamin with minerals-folic 1 tab PO DAILY 10/29/23 03/29/24 History acid 12 mcg chewable tablet (Centrum Adults) blood-glucose sensor (FreeStyle 09/25/24 Unknown History Ofe 3 Sensor device) Allergy/AdvReac Type Severity Reaction Status Date / Time metformin AdvReac NEEDS Verified 09/25/24 18:06 FOLLOW-UP Surgical History History of laparoscopy History of tonsillectomy History of cholecystectomy History of Hx of colonoscopy Social History household members: none and other details: Lives alone current occupational status: unemployed Smoking Status: Current some day smoker tobacco type: cigarettes alcohol intake: former substance use type: does not use ROS Constitutional Constitutional: Denies chills, fatigue, fever(s) or weakness Eyes Eyes: Denies change in vision Cardiovascular Cardiovascular: Denies chest pain Respiratory/Chest Respiratory/Chest: Denies shortness of breath at rest Gastrointestinal Gastrointestinal: Reports nausea; Denies abdominal pain or vomiting Musculoskeletal Musculoskeletal: Denies arthralgias or myalgias Neurologic Neurologic: Denies dizziness or headache(s) Psychiatric Psychiatric: Reports anxiety Vital Signs Vital Signs Vital Signs: 09/25/24 16:51 09/25/24 17:50 09/25/24 18:03 Temperature 98.6 F Temperature Source Temporal Pulse Rate 82 84 81 Respiratory Rate 16 18 16 Blood Pressure 132/83 H 151/91 H 151/91 H Blood Pressure Mean 99 111 111 Blood Pressure Source Monitor Blood Pressure Position Semi-Fowlers Blood Pressure Location Left Arm Pulse Ox 100 96 95 Oxygen Delivery Method Room Air Room Air Room Air Weight Weight: 49.7 kg Body Mass Index (BMI) 19.4 Physical Exam Const alert and oriented x3 Constitutional Narrative: Upper middle-aged female, thin and chronically ill-appearing, anxious appearing but making appropriate eye contact and answering questions with short appropriate responses. General Appearance: cooperative HEENT normocephalic, head/scalp atraumatic, hearing grossly normal bilaterally and nasal mucous membranes and turbinates normal Eyes PERRL, EOMs intact bilaterally and conjunctivae normal Neck full ROM Chest inspection of chest normal Resp normal respiratory effort, normal air movement, no use of accessory muscles and clear to auscultation bilaterally Cardio regular rate, regular rhythm, no murmurs and peripheral pulses 2+ throughout GI normal to inspection, nondistended, normoactive bowel sounds, soft to palpation, non-tender and non-distended Back/Spine normal ROM Extremity normal to inspection, full ROM and no pedal edema Skin no rashes or lesions noted Neuro moves all extremities and no focal motor deficits Psych mental status grossly normal Mood & Affect: anxious Results Lab / Micro Data 09/25/24 17:01 09/25/24 17:01 Labs: Laboratory Results - last 24 hr 09/25/24 17:01: WBC 8.0, RBC 4.67, Hgb 15.0, Hct 43.9, MCV 94.0, MCH 32.1 H, MCHC 34.2, RDW Std Deviation 47.5 H, RDW Coeff of [place] 13.8, Plt Count 153, MPV 9.2, Immature Gran % (Auto) 0.400, Neut % (Auto) 87.1 H, Lymph % (Auto) 9.1 L, [place] % (Auto) 2.6, Eos % (Auto) 0.0, Baso % (Auto) 0.8, Absolute Neuts (auto) 7.0, Absolute Lymphs (auto) 0.73 L, Nucleated RBC % 0, Sodium 135 L, Potassium 4.5, Chloride 97 L, Carbon Dioxide 19.0 L, Anion Gap 19 H, BUN 12, Creatinine 0.72, Est GFR (MDRD) Af Amer 105, Est GFR (MDRD) Non-Af 87, BUN/Creatinine Ratio 16.6, Glucose 129 H, Calcium 8.6, Ethyl Alcohol 362.0 H* Assessment & Plan Assessment/Plan (1) Alcohol withdrawal: (2) Desire for detoxification: (3) Alcoholic ketoacidosis: PLAN: Plan Patient is a 64-year-old female who presented [facility] ED on 09/25/2024 with alcohol withdrawal requesting detox. 1. Alcohol abuse with withdrawal and desire for detoxification ? Admit under inpatient status to [facility]. Addiction medicine consulted. Alcohol level 362 on admit. Unclear if patient was acutely intoxicated or actively withdrawing in the ED. Will treat with phenobarbital taper and other as needed medications per alcohol withdrawal order set. Folate and thiamine ordered. 2. Mild metabolic acidosis with suspected alcoholic ketosis ? Bicarb 19 on admit, anion gap of 19. Presume secondary to alcohol ketosis. Given IV fluids in the ED and encouraged p.o. intake as able. 3. Elevated transaminases ? T. bili 1.10, AST 182, ALT 238, alk phos 279 on admit. Suspected secondary to alcohol use but cannot rule out secondary etiology. No abdominal pain on admit. INR ordered. Right upper quadrant ultrasound ordered. Follow-up a.m. LFTs. 4. Hypothyroidism ? Continue home Synthroid. 5. Underweight BMI ? Nutrition consulted. BMI 18.6 on admit. Will add protein supplements to meals for now. DVT prophylaxis: Lovenox CODE STATUS: Full code, unverified Expected disposition: TBD Total clinical time spent by myself addressing the patient's medical issues, reviewing all the data, and collaborating with patient's care team: 55 minutes. Charges/Coding Visit Charges Inpatient E&M: 58375 Init Hosp L2
--- NOTE | 2024-09-25 18:29 | ED.RN ---
The patients brother asked what her labs looked like because we were giving her fluids. This RN replied They arent bad, she just needs a little hydration. the Patient stated : despite what you think I do take care of myself. This RN Replied : No I didnt think anything, your brother just asked if your labs were okay, this should make you feel a little better. Let me know if the meds do not work. Patient stated : Okay I know, thank you .
[2024-09-25] MEDS: LORazepam 2 MG/ML Syringe 0.5 MG IV (18:47)
[2024-09-25 18:52] VITALS: BP 145/88; PULSE 75; RESP 18; TEMP 36.9; O2SAT 97
[2024-09-25 18:56] LABS: AST(SGOT) 182 U/L (15-37); Alanine Aminotransfer ALT/SGPT 238 U/L (13-56); Alkaline Phosphatase 279 U/L (45-117); Bilirubin, Direct 0.25 mg/dL (0.00-0.30); Globulin 4.1 g/dL (2.2-4.2); Protein, Total 8.1 g/dL (6.4-8.2)
[2024-09-25 19:39] VITALS: BMI 18.5
[2024-09-25 19:50] VITALS: BP 139/85; PULSE 80; RESP 17; TEMP 37.1; O2SAT 94
[2024-09-25] MEDS: traZODone 100 MG Tablet PO (21:14)
[2024-09-25] MEDS: hydrOXYzine PAM 25 MG Capsule 50 MG PO (21:15)
[2024-09-25] MEDS: Ondansetron 8 MG Tablet PO (21:20)
[2024-09-25] MEDS: 0.9% Saline Lock 10 ML Syringe IV (21:20)
[2024-09-25 23:55] VITALS: BP 114/67; PULSE 88; RESP 18; TEMP 36.3; O2SAT 96
[2024-09-26 00:30] LABS: International Normalized Ratio 1.1; Prothrombin Time (Protime)PT. 13.9 SECONDS (11.7-14.9)
[2024-09-26 04:46] VITALS: BP 149/75; PULSE 86; RESP 16; TEMP 37.6; O2SAT 100
[2024-09-26] MEDS: Phenobarbital 32.4 MG Tablet 64.8 MG PO ×5 (04:49→21:09)
[2024-09-26] MEDS: Levothyroxine 75 MCG Tablet PO (04:49)
[2024-09-26 05:47] LABS: Amphetamine Urine VISTA NEGATIVE (<1000 ng/mL); Barbiturate Urine VISTA POSITIVE (< 200 ng/mL); Benzodiazepine Urine VISTA NEGATIVE (< 200 ng/mL); Cocaine Urine VISTA NEGATIVE (< 300 ng/mL); Ecstacy Urine VISTA NEGATIVE (< 500 ng/mL); Methadone Urine VISTA NEGATIVE (< 300 ng/mL); PCP Urine VISTA NEGATIVE (< 25 ng/mL); THC Urine VISTA POSITIVE (< 50 ng/mL); Vista UDS pH Range 6
--- NOTE | 2024-09-26 07:00 | US_ITS ---
PROCEDURE: ULTRASOUND ABDOMEN LIMITED REASON FOR EXAM: ELEVATED LIVER FUNCTION TESTS. COMPARISON: None FINDINGS: Liver: Hyperechogenic parenchyma. Homogeneous texture. 16 cm in length sagittally. Gallbladder: Surgically absent. Common bile duct: 0.79 cm. . Pancreas: Visualized portions are sonographically unremarkable. Right kidney: 10.1 x 4.8 x 4.2 cm. Cortical thickness measures 1.1 cm. US/Abdomen Limited IMPRESSION: 1. Status post cholecystectomy. 2. Steatosis. Reading Location: [facility]
[2024-09-26 07:05] LABS: Hematocrit 37.1 % (37-47); Hemoglobin 12.7 g/dL (12.0-15.0); Mean Corp Hgb Conc 34.2 g/dL (32-36); Mean Corpuscular Hgb 31.7 pg (27.0-32.0); Mean Corpuscular Volume 92.5 fL (81-99); Mean Platelet Vol. 9.6 fl (6.2-12.0); Platelet Count 123 K/mm3 (150-450); RBC Distribution Width CV 13.5 % (11.6-14.6); RBC Distribution Width SD 45.4 fl (35.1-43.9); Red Blood Count 4.01 M/mm3 (4.2-5.4); White Blood Count 7.8 K/mm3 (4.4-11.0)
[2024-09-26 07:32] VITALS: BP 157/77; PULSE 90; RESP 18; TEMP 36.8; O2SAT 97
[2024-09-26 07:36] LABS: AST(SGOT) 98 U/L (15-37); Alanine Aminotransfer ALT/SGPT 166 U/L (13-56); Albumin, Serum 3.3 g/dL (3.2-5.0); Alkaline Phosphatase 227 U/L (45-117); Anion Gap 15 (5-15); BUN 15 mg/dL (7-18); BUN/Creat Ratio 23.7 RATIO (10-20); Bilirubin, Direct 0.49 mg/dL (0.00-0.30); Chloride 101 mmol/L (98-107); Creatinine, Serum 0.63 mg/dL (0.55-1.02); EST Glomerular Filtration Rate 101 mL/min (>60); Est Glom Filt Rate - Afr Amer 122 mL/min (>60); Estimated Creatinine Clearance 68.54 ml/min; Globulin 3.3 g/dL (2.2-4.2); Glucose 75 mg/dL (74-106); Potassium 3.8 mmol/L (3.5-5.1); Protein, Total 6.6 g/dL (6.4-8.2); Sodium Level 137 mmol/L (136-145)
[2024-09-26 10:00] VITALS: BP 157/77; PULSE 90; RESP 18; TEMP 36.8; O2SAT 97
[2024-09-26] MEDS: Thiamine Hydrochloride 100 MG Tablet PO (10:33)
[2024-09-26] MEDS: Folic Acid 1 MG Tablet PO (10:33)
[2024-09-26] MEDS: Cyanocobalamin 500 MCG Tablet 5000 MCG PO (10:34)
[2024-09-26] MEDS: Enoxaparin 40 MG/0.4 ML Syringe SC (10:34)
[2024-09-26] MEDS: hydrOXYzine PAM 25 MG Capsule 50 MG PO ×2 (10:41→21:09)
--- NOTE | 2024-09-26 10:54 | PCM.PN.HOSP ---
Reason for Visit Reason for Visit: Diagnoses Other acidosis (09/25/24) Alcohol use, unspecified with withdrawal, unspecified (09/25/24) Subjective Subjective Patient was seen and examined today, she had an abdominal ultrasound that showed fatty liver, patient does not complain of any nervousness or anxiety Objective Data Objective Data Vital Signs: Vital Signs Temp Pulse Resp BP Pulse Ox O2 Del Method 98.2 F 90 18 157/77 H 97 Room Air 09/26/24 10:00 09/26/24 10:00 09/26/24 10:00 09/26/24 10:00 09/26/24 10:00 09/26/24 10:00 Oxygen Delivery Method Room Air Weight: 47.5 kg Body Mass Index (BMI) 18.5 Intake & Output: Intake and Output for Last 24 Hours 09/24/24 09/25/24 09/26/24 23:59 23:59 23:59 Intake Total 1000 / 1900 1000 / 1000 Output Total 400 / 400 Balance 1000 / 1500 600 / 600 Lab / Micro Data 09/26/24 06:30 09/26/24 06:30 Labs: Laboratory Results - last 24 hr 09/25/24 17:01: WBC 8.0, RBC 4.67, Hgb 15.0, Hct 43.9, MCV 94.0, MCH 32.1 H, MCHC 34.2, RDW Std Deviation 47.5 H, RDW Coeff of Pelon 13.8, Plt Count 153, MPV 9.2, Immature Gran % (Auto) 0.400, Neut % (Auto) 87.1 H, Lymph % (Auto) 9.1 L, Bennett % (Auto) 2.6, Eos % (Auto) 0.0, Baso % (Auto) 0.8, Absolute Neuts (auto) 7.0, Absolute Lymphs (auto) 0.73 L, Nucleated RBC % 0, Sodium 135 L, Potassium 4.5, Chloride 97 L, Carbon Dioxide 19.0 L, Anion Gap 19 H, BUN 12, Creatinine 0.72, Est GFR (MDRD) Af Amer 105, Est GFR (MDRD) Non-Af 87, BUN/Creatinine Ratio 16.6, Glucose 129 H, Calcium 8.6, Total Bilirubin 1.10 H, Direct Bilirubin 0.25, AST 182 H, ALT 238 H, Alkaline Phosphatase 279 H, Total Protein 8.1, Albumin 4.0, Globulin 4.1, Ethyl Alcohol 362.0 H* 09/25/24 23:55: PT 13.9, INR 1.1 09/26/24 05:00: Urine Opiates Screen NEGATIVE, Urine Methadone Screen NEGATIVE, Ur Barbiturates Screen POSITIVE H, Ur Phencyclidine Scrn NEGATIVE, Ur Amphetamines Screen NEGATIVE, MDMA (Ecstasy) Screen NEGATIVE, U Benzodiazepines Scrn NEGATIVE, Urine Cocaine Screen NEGATIVE, U Cannabinoids Screen POSITIVE H, Ur Drug Screen Comment 09/26/24 06:30: WBC 7.8, RBC 4.01 L, Hgb 12.7, Hct 37.1, MCV 92.5, MCH 31.7, MCHC 34.2, RDW Std Deviation 45.4 H, RDW Coeff of Pelon 13.5, Plt Count 123 L, MPV 9.6, Sodium 137, Potassium 3.8, Chloride 101, Carbon Dioxide 22.0, Anion Gap 15, BUN 15, Creatinine 0.63, Estim Creat Clear Calc 68.54, Est GFR (MDRD) Af Amer 122, Est GFR (MDRD) Non-Af 101, BUN/Creatinine Ratio 23.7 H, Glucose 75, Calcium 8.0 L, Total Bilirubin 1.30 H, Direct Bilirubin 0.49 H, AST 98 H, ALT 166 H, Alkaline Phosphatase 227 H, Total Protein 6.6, Albumin 3.3, Globulin 3.3 Radiography Diagnostic Testing: Radiology Impression Abdomen Ultrasound 09/26/24 07:00 IMPRESSION: 1. Status post cholecystectomy. 2. Steatosis. Reading Location: [facility] Physical Exam Const alert, oriented x3 and no apparent distress General Appearance: cooperative, well kempt and well developed Orientation / Consciousness: awake, oriented to person, oriented to place and oriented to time HEENT normocephalic, head/scalp atraumatic and moist oral mucous membranes Eyes PERRL, EOMs intact bilaterally and conjunctivae normal Neck supple, no JVD, thyroid normal and no carotid bruits General: trachea midline Resp normal respiratory effort, no retractions, no use of accessory muscles and clear to auscultation bilaterally Auscultation: Negative for rales, rhonchi or wheezes Cardio regular rate, regular rhythm, S1 normal heart sound, S2 normal heart sound, no murmurs, no rub and no gallops GI normal to inspection, nondistended, normoactive bowel sounds, soft to palpation, non-tender and non-distended Extremity no clubbing, cyanosis or edema Skin no rashes or lesions noted General Skin Exam: no breakdown Neuro oriented x3, CN's II-XII intact bilaterally, no focal motor deficits and no sensory deficits noted Sensorium / Orientation: awake and alert Speech: speech normal Psych affect normal Assessment & Plan Assessment/Plan (1) Alcohol withdrawal: PLAN: Plan 1. Alcohol use disorder with withdrawal-patient's medications will remain the same #2 type 2 diabetes-patient will be placed back on Jardiance, I will get a fasting sugar on her in the morning, I do not think is necessary to monitor AC nightly blood sugars #3 hypothyroidism-patient will remain on Synthroid Total clinical time spent by myself addressing the patient's medical issues, reviewing all of her data, and collaborating with patient's care team: 35 minutes Charges/Coding Visit Charges Inpatient E&M: 79107 Subs Hosp L2
[2024-09-26] MEDS: Empagliflozin 10 MG Tablet PO (12:53)
[2024-09-26 14:00] VITALS: BP 147/87; PULSE 82; RESP 16; TEMP 36.9; O2SAT 97
[2024-09-26] MEDS: Gabapentin 300 MG Capsule PO (14:00)
--- NOTE | 2024-09-26 14:50 | ADDICTION ---
Met with pt to complete RAMP assessments. Pt was cooperative and A&0x4. This is pt's 3rd time in detox in 5 months. Pt reports that she is attending counseling but continuing to drink. Pt reports that she does not believe that she needs [facility] tx but will think about it. Pt does not have much insight on addiction, behaviors, or relapse prevention. TW offered resources if she changes her mind.
[2024-09-26 15:32] VITALS: BP 147/87; PULSE 82; RESP 16; TEMP 36.9; O2SAT 97
--- NOTE | 2024-09-26 16:13 | CASEMGMT ---
Social Work SW met w/pt, offered resources as pt is listed as self pay. Pt declined all resources stating she wouldn't qualify. SW remains available should pt want the information. ARIANNA Wilder
[2024-09-26] MEDS: traZODone 100 MG Tablet PO (21:09)
[2024-09-26 21:23] VITALS: BP 134/104; PULSE 80; RESP 16; TEMP 36.5; O2SAT 99
[2024-09-27] MEDS: Phenobarbital 32.4 MG Tablet 64.8 MG PO ×4 (00:55→12:04)
[2024-09-27] MEDS: Levothyroxine 75 MCG Tablet PO (04:23)
[2024-09-27] MEDS: Gabapentin 300 MG Capsule PO (04:23)
[2024-09-27 04:28] VITALS: BP 117/82; PULSE 70; RESP 16; TEMP 36.6; O2SAT 98
[2024-09-27 06:58] VITALS: O2SAT 96
[2024-09-27 08:07] LABS: HEPATITIS B SURFACE AG Negative (Negative); Hep C Antibodies Non Reactive (Non Reactive); Hepatitis A IgM Antibody Negative (Negative); Hepatitis B Core AB IgM Negative (Negative)
[2024-09-27 08:19] VITALS: BP 129/90; PULSE 83; RESP 18; TEMP 36.4; O2SAT 97
[2024-09-27] MEDS: Thiamine Hydrochloride 100 MG Tablet PO (08:21)
[2024-09-27] MEDS: Folic Acid 1 MG Tablet PO (08:21)
[2024-09-27] MEDS: Empagliflozin 10 MG Tablet PO (08:22)
[2024-09-27] MEDS: Cyanocobalamin 500 MCG Tablet 5000 MCG PO (08:23)
--- NOTE | 2024-09-27 10:14 | DCINST_ITS ---
Discharge Instructions Diet Discharge Diet: 1800 Calorie Control Diet DC O2, CPAP, BIPAP needs Home O2 Discharge instructions: No Dressing / Incision Discharge Activity: Return to Normal Activity Weight Bearing Status: Full weight bearing Follow Up Care Test Results: Test results from this visit will be discussed in further detail at your follow- up appointment, if applicable. Discharge Plan Admission Admit Date/Time: 09/25/24 18:28 Primary Reason for Your Visit: Alcohol substance use disorder Attending Provider: Narinder Zapata Primary Care Provider: Ellen Lao Consulting Providers: Kendall Tierney Instructions Additional Instructions / Restrictions: I would advise you to follow-up with 180 for outpatient detox services Discharge Orders/Prescriptions Prescriptions: New phenobarbital 32.4 mg tablet 32.4 mg PO TID Qty: 9 0RF Continued Jardiance 10 mg tablet 10 mg PO DAILY levothyroxine [Synthroid] 75 mcg tablet 75 mcg PO DAILY Centrum Adults 12 mcg tablet,chewable 1 tab PO DAILY cholecalciferol (vitamin D3) [Vitamin D3] 25 mcg (1,000 unit) tablet,chewable 10,000 unit PO .weekly cyanocobalamin (vitamin B-12) [Vitamin B-12] 1,000 mcg tablet 5,000 mcg PO DAILY (DME) FreeStyle Ofe 3 Sensor Device MISCELLANEOUS Patient Comments: Apply a new sensor every 14 days Referrals / Follow Up: Ellen Lao MD [Primary Care Provider] - Disposition Disposition (needs filled in before D/C Order can be placed): Home, Self Care
--- NOTE | 2024-09-27 10:18 | DS.PCM_ITS ---
Providers Date of Admission: 09/25/24 Date of Discharge: 09/27/24 Primary Care Physician: Ellen Lao MD Reason For Visit: ALCOHOL DETOX Diagnosis Discharge Diagnosis (1) Alcohol withdrawal: Status: Acute Code(s): F10.939 - Alcohol use, unspecified with withdrawal, unspecified Plan 1. Alcohol use disorder with withdrawal-patient's medications will remain the same #2 type 2 diabetes-patient will be placed back on Jardiance, I will get a fasting sugar on her in the morning, I do not think is necessary to monitor AC nightly blood sugars #3 hypothyroidism-patient will remain on Synthroid Total clinical time spent by myself addressing the patient's medical issues, reviewing all of her data, and collaborating with patient's care team: 35 minutes Medications at Discharge Home Medications empagliflozin 10 mg tablet (Jardiance) 10 mg PO DAILY 10/15/23 levothyroxine 75 mcg tablet (Synthroid) 75 mcg PO DAILY 10/15/23 cholecalciferol (vitamin D3) 25 mcg (1,000 unit) chewable tablet (Vitamin D3) 10,000 unit PO .weekly 10/29/23 cyanocobalamin (vitamin B-12) 1,000 mcg tablet (Vitamin B-12) 5,000 mcg PO DAILY 10/29/23 multivitamin with minerals-folic acid 12 mcg chewable tablet (Centrum Adults) 1 tab PO DAILY 10/29/23 blood-glucose sensor (FreeStyle Ofe 3 Sensor device) 09/25/24 phenobarbital 32.4 mg tablet 32.4 mg PO TID #9 tabs 09/27/24 Hospital Course Operations None Procedures None Summary of Care Provided Minutes Spent on Discharge: 30 Hospital Course: This 64-year-old white female was seen in the emergency room at [facility] requesting services for alcohol detox. Patient was admitted to [place] [address], orders were entered using the addiction alcohol order set, patient was seen by addiction clinical social work therapist. During her hospitalization, patient had no major symptoms of alcohol withdrawal and there were no DTs noted. On 09/27/2024, patient was seen and examined: On examination she appeared in good health and spirits, she does not appear to be in any distress. Vital signs as documented. Skin warm and dry and without overt rashes. Neck without JVD, thyroid appears normal, trachea is midline, neck is supple. Lungs clear, normal air movement was noted. Heart exam notable for regular rhythm, normal sounds and absence of murmurs, rubs or gallops. Abdomen unremarkable and without evidence of organomegaly, masses, or abdominal aortic enlargement, bowel sounds are present in all 4 quadrants, no abdominal tenderness was noted. Extremities nonedematous, no cyanosis was noted, no clubbing was noted. Neuro: Cranial nerves II through XII are grossly intact, no focal motor deficits were noted, sensation to light touch and pinprick is intact, motor exam 5/5 throughout. Psych: Patient is alert and oriented x3, she does not appear anxious or depressed, she does not appear agitated. Patient requested discharge on 09/27/2024, she had no symptoms of alcohol withdrawal and I agreed with the discharge plan, at the time of discharge, patient stated that she was unsure if she was going to follow-up with outpatient detox services/[facility]. She had material from addiction clinical social work therapist if she desired to follow-up. I encouraged her to do so. Weight / BMI Weight Weight: 47.5 kg Body Mass Index (BMI) 18.5 ABG / Lab / Microbiology Data 09/26/24 06:30 09/26/24 06:30 Laboratory: Laboratory Results - last 24 hr 09/25/24 21:09: Hepatitis A IgM Ab Negative, Hep Bs Antigen Negative, Hep B Core IgM Ab Negative, Hepatitis C Ab (EIA) Non Reactive, Hep C Ab Comment Comment D/C Instructions Discharge Diet: 1800 Calorie Control Diet Weight Bearing Status: Full weight bearing DC O2, CPAP, BIPAP Needs Home O2 Discharge instructions: No Meaningful Use Info Meaningful Use Meaningful Use Diagnoses (Choose all that apply): None applicable Ischemic Stroke Statin Dosing Therapy Reference: STATIN DOSE THERAPY REFERENCE: * Patients > 75 years receive moderate or high dose statin therapy. * Patients 75 years or YOUNGER should receive HIGH intensity statin dose unless contraindicated. You will be required to document reason for non-treatment if statin daily dose does not meet guidelines. HIGH DOSE STATIN THERAPY DAILY Atorvastatin > than or = to 40 mg Rosuvastatin > than or = to 20 mg Amlodipine + Atorvastatin > than or = to 2.5/40 mg Ezetimibe + Simvastatin 10/80 mg Simvastatin 80mg Discharge Plan Admission Admit Date/Time: 09/25/24 18:28 Primary Reason for Your Visit: Alcohol substance use disorder Attending Provider: Narinder Zapata Primary Care Provider: Ellen Lao Consulting Providers: Kendall Tierney Instructions Additional Instructions / Restrictions: I would advise you to follow-up with 180 for outpatient detox services Discharge Orders/Prescriptions Prescriptions: New phenobarbital 32.4 mg tablet 32.4 mg PO TID Qty: 9 0RF Continued Jardiance 10 mg tablet 10 mg PO DAILY levothyroxine [Synthroid] 75 mcg tablet 75 mcg PO DAILY Centrum Adults 12 mcg tablet,chewable 1 tab PO DAILY cholecalciferol (vitamin D3) [Vitamin D3] 25 mcg (1,000 unit) tablet,chewable 10,000 unit PO .weekly cyanocobalamin (vitamin B-12) [Vitamin B-12] 1,000 mcg tablet 5,000 mcg PO DAILY (DME) FreeStyle Ofe 3 Sensor Device MISCELLANEOUS Patient Comments: Apply a new sensor every 14 days Referrals / Follow Up: Ellen Lao MD [Primary Care Provider] - Disposition Disposition (needs filled in before D/C Order can be placed): Home, Self Care Charges/Coding Visit Charges Inpatient E&M: 56594 Disch Hosp
== END 2024-09-27 12:14 | disposition home or self-care (01) | DRG 897 ==
LOC: ED 18:40 → MS3 19:05
PROVIDERS: Admitting Provider Hospitalist; Emergency Provider Emergency Medicine; PCP Family Medicine; Referring Provider Hospitalist; Visit Provider Internal Medicine
DX: F10.239 Alcohol dependence with withdrawal, unspecified (principal); E87.29 Other acidosis; Z68.1 Body mass index [BMI] 19.9 or less, adult; E11.9 Type 2 diabetes mellitus without complications; E03.9 Hypothyroidism, unspecified; I10 Essential (primary) hypertension; E78.00 Pure hypercholesterolemia, unspecified; F17.210 Nicotine dependence, cigarettes, uncomplicated; Z79.84 Long term (current) use of oral hypoglycemic drugs; Y90.8 Blood alcohol level of 240 mg/100 ml or more; Z79.890 Hormone replacement therapy; Z90.49 Acquired absence of other specified parts of digestive tract; R74.01 Elevation of levels of liver transaminase levels; R63.6 Underweight
CPT/HCPCS: 36415; 76705; 80048; 80074; 80076; 80307; 82077; 85025; 85027; 85610; 97802; 99285; A4216

== ENCOUNTER 2024-11-29 18:53 | Inpatient (IN) | payer SELFPAY ==
[2024-11-29] VITALS (7 sets, daily range): BP systolic 92–138; BP diastolic 57–90; PULSE 75–90; RESP 14–22; TEMP 36.6–36.7; O2SAT 92–98; BMI 18.2; BMI 17.6
[2024-11-29] MEDS: 0.9% Normal Saline (1000mL) 1,000 ML 999 ML IV (19:15)
[2024-11-29] MEDS: Phenobarbital 32.4 MG Tablet 97.2 MG PO ×2 (19:20→22:03)
[2024-11-29] MEDS: Lorazepam 2 MG/ML WCH Syringe 0.5 MG IV (19:20)
--- NOTE | 2024-11-29 19:24 | EX.ED.SAOD ---
HPI <PORTILLO Troy - Last Filed: 11/29/24 20:53> History of Present Illness Chief Complaint: Substance Abuse Narrative Narrative: Patient presenting today requesting to detox from alcohol. She reports that she drinks 4-6 tall white claws daily, her last drink was this morning. She reports that she has had a history of a withdrawal seizure and hallucinations in the past. She is scared she is going to start hallucinating soon if she does not get medication. She denies any other substance use. She last detoxed in September. She does have a longstanding history of alcohol abuse. She denies recent fevers, chills, abdominal pain, chest pain, nausea, and vomiting. [facility] <PORTILLO Troy - Last Filed: 11/29/24 20:53> [facility] Medical History Chronic hyponatremia Iron deficiency Alcohol abuse Acute alcoholic hepatitis History of diabetes mellitus Meniere disease Loss of hearing Wears hearing aid Wears glasses Post-menopausal Marijuana use Fatty liver High cholesterol Emphysema, unspecified History of stress test Vitamin D deficiency Severe major depression Pancytopenia Iron deficiency anemia GERD (gastroesophageal reflux disease) Hypothyroid Hyperlipidemia DM w/o complication type II, uncontrolled Home Medications ?Medication ?Instructions ?Recorded ?Last Taken ?Type empagliflozin 10 mg tablet 10 mg PO DAILY 10/15/23 03/29/24 History (Jardiance) levothyroxine 75 mcg tablet 75 mcg PO DAILY 10/15/23 03/29/24 History (Synthroid) cholecalciferol (vitamin D3) 25 10,000 unit PO .weekly 10/29/23 03/29/24 History mcg (1,000 unit) chewable tablet (Vitamin D3) cyanocobalamin (vitamin B-12) 5,000 mcg PO DAILY 10/29/23 03/29/24 History 1,000 mcg tablet (Vitamin B-12) multivitamin with minerals-folic 1 tab PO DAILY 10/29/23 03/29/24 History acid 12 mcg chewable tablet (Centrum Adults) blood-glucose sensor (FreeStyle 09/25/24 Unknown History Ofe 3 Sensor device) phenobarbital 32.4 mg tablet 32.4 mg PO TID #9 tabs 09/27/24 Unknown Rx Allergy/AdvReac Type Severity Reaction Status Date / Time metformin AdvReac NEEDS Verified 11/29/24 18:57 FOLLOW-UP Family History Mother Heart disease Father No problems noted. Surgical History History of laparoscopy History of tonsillectomy History of cholecystectomy History of Hx of colonoscopy Social History household members: none and other details: Lives alone current occupational status: unemployed Smoking Status: Former smoker how long ago did patient quit smoking: Quit ~ 1 week prior to current 11/29/24 presentation. alcohol intake: current alcohol intake frequency: 3 or more drinks per day Alcohol type: hard liquor details: ~4-6 white claws at least daily substance use type: does not use ROS <PORTILLO Troy - Last Filed: 11/29/24 20:53> ROS ED Constitutional Constitutional ED: Denies chills or fever(s) Cardiovascular Cardiovascular: Denies chest pain Respiratory/Chest Respiratory/Chest: Denies dyspnea Gastrointestinal Gastrointestinal: Denies abdominal pain, nausea or vomiting Musculoskeletal Musculoskeletal: Denies arthralgias or myalgias Integumentary Denies rash Neurologic Neurologic: Denies weakness EXAM <PORTILLO Troy - Last Filed: 11/29/24 20:53> Physical Exam Const Vital Signs: 11/29/24 18:54 11/29/24 19:53 11/29/24 19:54 Temperature 98 F 98 F Temperature Source Temporal Oral Pulse Rate 90 80 90 Respiratory Rate 18 22 H 18 Blood Pressure 138/83 H 126/90 H 138/83 H Blood Pressure Mean 101 102 101 Blood Pressure Source Monitor Blood Pressure Position Semi-Fowlers Blood Pressure Location Left Arm Pulse Ox 97 96 98 Oxygen Delivery Method Room Air Room Air Room Air 11/29/24 20:00 Temperature Temperature Source Pulse Rate 80 Respiratory Rate 22 H Blood Pressure 126/90 H Blood Pressure Mean 102 Blood Pressure Source Blood Pressure Position Blood Pressure Location Pulse Ox 96 Oxygen Delivery Method Room Air Positive well nourished, well developed and no apparent distress General Appearance ED: well developed HEENT Reports normocephalic and head/scalp atraumatic Mouth ED: Yes moist mucous membranes normal Eyes PERRL and EOMs intact bilaterally Neck full ROM and supple Chest Wall inspection of chest normal Resp normal respiratory effort and clear to auscultation bilaterally Cardio regular rate and regular rhythm GI soft to palpation, non-tender, non-distended and no masses Back/Spine normal ROM and normal to inspection Extremity normal to inspection and full ROM Neuro oriented x3, CN's II-XII intact bilaterally, moves all extremities, no focal motor deficits and no sensory deficits noted Sensorium / Orientation: awake and alert Psych Psych Narrative: Patient appears agitated and intoxicated. She is being rude with staff and uncooperative. Skin no rashes or lesions noted and no wounds <Srini Harris MD - Last Filed: 11/29/24 21:22> Physical Exam Const Vital Signs: 11/29/24 18:54 11/29/24 19:53 11/29/24 19:54 Temperature 98 F 98 F Temperature Source Temporal Oral Pulse Rate 90 80 90 Respiratory Rate 18 22 H 18 Blood Pressure 138/83 H 126/90 H 138/83 H Blood Pressure Mean 101 102 101 Blood Pressure Source Monitor Blood Pressure Position Semi-Fowlers Blood Pressure Location Left Arm Pulse Ox 97 96 98 Oxygen Delivery Method Room Air Room Air Room Air 11/29/24 20:00 Temperature Temperature Source Pulse Rate 80 Respiratory Rate 22 H Blood Pressure 126/90 H Blood Pressure Mean 102 Blood Pressure Source Blood Pressure Position Blood Pressure Location Pulse Ox 96 Oxygen Delivery Method Room Air [facility] <PORTILLO Troy - Last Filed: 11/29/24 20:53> [facility] Narrative Medical decision making narrative: Patient presenting today requesting to detox from alcohol. She has detoxed here in the past. She has a longstanding history of alcohol abuse. She drinks about 4-6 tall white claws daily. She does appear intoxicated at this time, she originally was being somewhat rude with the nursing staff, however, she did calm down. She is requesting phenobarbital and anxiety medication reporting that she feels she is going to, hallucinate soon. She is agreeable with being admitted for detox. Labs will be obtained, she was given phenobarb and Ativan. CBC without leukocytosis or anemia. CMP shows a slightly low sodium at 135, chronically elevated transaminases, urine drug screen positive for THC, alcohol level 273. I spoke with hospitalist, patient admitted for detox in stable condition. Lab Data Attestation: I reviewed the patient's lab results. Labs: Laboratory Results - last 24 hr 11/29/24 19:30 WBC 8.4 RBC 4.64 Hgb 14.7 Hct 43.1 MCV 92.9 MCH 31.7 MCHC 34.1 RDW Std Deviation 44.7 H RDW Coeff of Pelon 13.2 Plt Count 172 MPV 9.0 Immature Gran % (Auto) 0.200 Neut % (Auto) 76.8 H Lymph % (Auto) 18.0 L [place] % (Auto) 4.5 Eos % (Auto) 0.0 Baso % (Auto) 0.5 Absolute Neuts (auto) 6.5 Absolute Lymphs (auto) 1.51 Nucleated RBC % 0 Sodium 135 Potassium 3.8 Chloride 91 L Carbon Dioxide 14.1 L Anion Gap 30 H BUN 23 H Creatinine 0.73 Estim Creat Clear Calc 58.28 Est GFR (MDRD) Non-Af 92 BUN/Creatinine Ratio 31.5 H Glucose 115 H Calcium 8.9 Total Bilirubin 0.35 AST 109 H ALT 110 H Alkaline Phosphatase 149 H Total Protein 7.1 Albumin 4.4 Globulin 2.7 Albumin/Globulin Ratio 1.6 Urine Opiates Screen NEGATIVE U Buprenorphine Qual NEGATIVE Ur Oxycodone Screen NEGATIVE Urine Methadone Screen NEGATIVE Urine Fentanyl Screen NEGATIVE Ur Barbiturates Screen NEGATIVE Ur Phencyclidine Scrn NEGATIVE Ur Amphetamines Screen NEGATIVE U Benzodiazepines Scrn NEGATIVE Urine Cocaine Screen NEGATIVE U Cannabinoids Screen PRESUMPTIVE POSITIVE Ethyl Alcohol 273.0 H <Srini Harris MD - Last Filed: 11/29/24 21:22> [facility] Lab Data Labs: Laboratory Results - last 24 hr 11/29/24 19:30 WBC 8.4 RBC 4.64 Hgb 14.7 Hct 43.1 MCV 92.9 MCH 31.7 MCHC 34.1 RDW Std Deviation 44.7 H RDW Coeff of Pelon 13.2 Plt Count 172 MPV 9.0 Immature Gran % (Auto) 0.200 Neut % (Auto) 76.8 H Lymph % (Auto) 18.0 L [place] % (Auto) 4.5 Eos % (Auto) 0.0 Baso % (Auto) 0.5 Absolute Neuts (auto) 6.5 Absolute Lymphs (auto) 1.51 Nucleated RBC % 0 Sodium 135 Potassium 3.8 Chloride 91 L Carbon Dioxide 14.1 L Anion Gap 30 H BUN 23 H Creatinine 0.73 Estim Creat Clear Calc 58.28 Est GFR (MDRD) Non-Af 92 BUN/Creatinine Ratio 31.5 H Glucose 115 H Calcium 8.9 Total Bilirubin 0.35 AST 109 H ALT 110 H Alkaline Phosphatase 149 H Total Protein 7.1 Albumin 4.4 Globulin 2.7 Albumin/Globulin Ratio 1.6 Urine Opiates Screen NEGATIVE U Buprenorphine Qual NEGATIVE Ur Oxycodone Screen NEGATIVE Urine Methadone Screen NEGATIVE Urine Fentanyl Screen NEGATIVE Ur Barbiturates Screen NEGATIVE Ur Phencyclidine Scrn NEGATIVE Ur Amphetamines Screen NEGATIVE U Benzodiazepines Scrn NEGATIVE Urine Cocaine Screen NEGATIVE U Cannabinoids Screen PRESUMPTIVE POSITIVE Ethyl Alcohol 273.0 H Management Discussion w/another healthcare provider: Hospitalist Treatment and Re-Evaluation Narrative: Dr. Harris: I have personally performed a face to face assessment of the patient and have reviewed the CHRISTAL Note. I performed a substantive portion of the visit including all aspects of the following. My nj findings include: History is patient presents for detox from alcohol, with withdrawal symptoms stating that she last drank this morning. She has been through detox previously. Exam is afebrile. Vital signs noted. Nontoxic-appearing. Cardiovascular examination regular rate and rhythm. Lungs clear to auscultation bilaterally. Abdomen soft nontender with positive bowel sounds. Neurological examination nonfocal and nonlateralizing. Positive anxiety. Medical Decision Making: Medical clearance labs. Discussed with hospitalist. Admit for detox. Other additions or changes: [None] Discharge Plan Dx/Rx/DC Orders Clinical Impression: Desire for detoxification, Alcohol abuse, Acute alcohol intoxication Disposition Disposition: Acute Care Hospital [facility] Discharge Date/Time: 11/29/24 21:17
[2024-11-29 19:50] LABS: Absolute Lymphocyte Count 1.51 X10^3/uL (0.83-4.51); Absolute Neutrophil Count 6.5 X10^3/uL (2.0-7.7); Basophil# 0.04 X10^3/uL; Basophil% 0.5 % (0-1); Hematocrit 43.1 % (37-47); Hemoglobin 14.7 g/dL (12.0-15.0); Lymphocyte # 1.51 X10^3/ul (0.83-4.51); Mean Corp Hgb Conc 34.1 g/dL (32-36); Mean Corpuscular Hgb 31.7 pg (27.0-32.0); Mean Corpuscular Volume 92.9 fL (81-99); Monocyte# 0.38 X10^3/uL; Monocyte% 4.5 % (0-10); NRBC Flagged by Analyzer 0 % (0-5); Neutrophil # 6.45 X10^3/uL (2.7-7.7); Neutrophil % 76.8 % (47-70); Platelet Count 172 K/mm3 (150-450); RBC Distribution Width CV 13.2 % (11.6-14.6); RBC Distribution Width SD 44.7 fl (35.1-43.9); Red Blood Count 4.64 M/mm3 (4.2-5.4); White Blood Count 8.4 K/mm3 (4.4-11.0)
[2024-11-29 20:33] LABS: ALB/GLOB Ratio 1.6 RATIO (0.9-2.4); AST(SGOT) 109 U/L (<=31); Alanine Aminotransfer ALT/SGPT 110 U/L (<=34); Albumin, Serum 4.4 g/dL (3.4-4.8); Alkaline Phosphatase 149 U/L (35-104); Anion Gap 30 (5-15); BUN 23 mg/dL (4-19); BUN/Creat Ratio 31.5 RATIO (10-20); Calcium,Total 8.9 mg/dL (7.6-11.0); Carbon Dioxide 14.1 mmol/L (21.0-32.0); Chloride 91 mmol/L (98-108); Creatinine, Serum 0.73 mg/dL (0.70-1.20); EST Glomerular Filtration Rate 92 (>60); Estimated Creatinine Clearance 58.28 ml/min (50-250); Globulin 2.7 g/dL (2.2-4.2); Glucose 115 mg/dL (70-99); Potassium 3.8 mmol/L (3.3-5.1); Protein, Total 7.1 g/dL (5.9-8.4); Sodium Level 135 mmol/L (133-145); Total Bilirubin 0.35 mg/dL (0.00-1.30)
--- NOTE | 2024-11-29 20:39 | PCM.HP.STD ---
HPI - General General Date of Admission: 11/29/24 Date of Service: 11/29/24 Chief Complaint: Acute EtOH withdrawal, requesting detoxification. HPI Narrative The patient is a 64 y/o F w/ PMHx: Former tobacco use, Diabetes mellitus type II, Anxiety and Depression, Hypothyroidism, Chronic pancytopenia secondary to EtOH abuse, Chronic alcoholic hepatitis/transaminitis secondary to EtOH abuse, Chronic Hyponatremia secondary to EtOH abuse, most recently admitted 09/25/2024 for alcohol withdrawal detox in her record successfully completing although the timeline seems significantly short as she was discharged on 09/27/2024 having unfortunately left AMA the previous time (07/01/2024) who now re-presents to the [facility] ED on 11/29/24 with history of request for alcohol detoxification currently drinking approximately 4-6 white claws at least daily with her last drink earlier in the morning on day of presentation with onset of withdrawal symptoms with history of significant hallucinations and withdrawal seizures in the past. In the ED patient with significant cramping abdominal pain, loose stools, shivering, nausea with dry heaves, muscle pains, rhinorrhea, tremulousness, tearing, anxiety, restlessness, mild headache. Patient is interested in obtaining sober status. Workup in the ED included T100 temporal, heart rate 90, BP 130/83, respiratory 18, 97% room air with most recent repeat vitals T90 oral, heart rate 80, BP 126/90, respiratory 22, 96% room air, CBC with WBC 8.4, he 1 14.7, platelet 172 without marked shift, CMP with chloride 91, compacted 14.1, anion gap 30, BUN/creatinine 23/0.73, GFR 92, glucose 115, AST/LT 109/110, alk phos 149, UDS pending upon request evaluation of patient, ethyl alcohol level 273. In the ED patient ministered phenobarbital 97.2 mg p.o. x 1, Ativan 0.5 mg IV x 1 and 1 L normal saline. REPLACED BY [facility] Medical History Chronic hyponatremia Iron deficiency Alcohol abuse Acute alcoholic hepatitis History of diabetes mellitus Meniere disease Loss of hearing Wears hearing aid Wears glasses Post-menopausal Marijuana use Fatty liver High cholesterol Emphysema, unspecified History of stress test Vitamin D deficiency Severe major depression Pancytopenia Iron deficiency anemia GERD (gastroesophageal reflux disease) Hypothyroid Hyperlipidemia DM w/o complication type II, uncontrolled Home Medications ?Medication ?Instructions ?Recorded ?Last Taken ?Type empagliflozin 10 mg tablet 10 mg PO DAILY 10/15/23 03/29/24 History (Jardiance) levothyroxine 75 mcg tablet 75 mcg PO DAILY 10/15/23 03/29/24 History (Synthroid) cholecalciferol (vitamin D3) 25 10,000 unit PO .weekly 10/29/23 03/29/24 History mcg (1,000 unit) chewable tablet (Vitamin D3) cyanocobalamin (vitamin B-12) 5,000 mcg PO DAILY 10/29/23 03/29/24 History 1,000 mcg tablet (Vitamin B-12) multivitamin with minerals-folic 1 tab PO DAILY 10/29/23 03/29/24 History acid 12 mcg chewable tablet (Centrum Adults) blood-glucose sensor (FreeStyle 09/25/24 Unknown History Ofe 3 Sensor device) phenobarbital 32.4 mg tablet 32.4 mg PO TID #9 tabs 09/27/24 Unknown Rx Allergy/AdvReac Type Severity Reaction Status Date / Time metformin AdvReac NEEDS Verified 11/29/24 18:57 FOLLOW-UP Family History Mother Heart disease Father No problems noted. Surgical History History of laparoscopy History of tonsillectomy History of cholecystectomy History of Hx of colonoscopy Social History household members: none and other details: Lives alone current occupational status: unemployed Smoking Status: Former smoker how long ago did patient quit smoking: Quit ~ 1 week prior to current 11/29/24 presentation. alcohol intake: current alcohol intake frequency: 3 or more drinks per day Alcohol type: hard liquor details: ~4-6 white claws at least daily substance use type: does not use ROS ROS Narrative Admission Review of Systems: CONSTITUTIONAL: No weight loss, fever, + chills, weakness or fatigue. HEENT: + Mild congestion, rhinorrhea. Eyes: No visual loss, blurred vision, double vision or yellow sclerae. Ears, Nose, Throat: No hearing loss, sneezing, congestion, runny nose or sore throat. SKIN: No rash or itching, lesions, wounds. CARDIOVASCULAR: No chest pain, chest pressure or chest discomfort, palpitations, edema, orthopnea, syncopal events. RESPIRATORY: No shortness of breath, cough or sputum, wheezing, hemoptysis. GASTROINTESTINAL: + anorexia, nausea, vomiting, abdominal cramping, loose stools. No melena, BRBPR. GENITOURINARY: No dysuria, frequency, urgency or retention. NEUROLOGICAL: + Headache, tremors, restlessness. No syncope, paralysis, ataxia, numbness or tingling in the extremities, focal weakness, change in bowel or bladder control, seizure. MUSCULOSKELETAL: + muscle, back pain, joint pain or stiffness. HEMATOLOGIC: + History of anemia, easy bleeding/bruising. LYMPHATICS: No enlarged nodes. No history of splenectomy. PSYCHIATRIC:+ History of anxiety and depression. ENDOCRINOLOGIC: No reports of sweating, cold or heat intolerance. No polyuria or polydipsia. ALLERGIES: No history of asthma, hives, eczema or rhinitis. Vital Signs Vital Signs Vital Signs: 11/29/24 18:54 11/29/24 19:53 11/29/24 19:54 Temperature 98 F 98 F Temperature Source Temporal Oral Pulse Rate 90 80 90 Respiratory Rate 18 22 H 18 Blood Pressure 138/83 H 126/90 H 138/83 H Blood Pressure Mean 101 102 101 Blood Pressure Source Monitor Blood Pressure Position Semi-Fowlers Blood Pressure Location Left Arm Pulse Ox 97 96 98 Oxygen Delivery Method Room Air Room Air Room Air 11/29/24 20:00 Temperature Temperature Source Pulse Rate 80 Respiratory Rate 22 H Blood Pressure 126/90 H Blood Pressure Mean 102 Blood Pressure Source Blood Pressure Position Blood Pressure Location Pulse Ox 96 Oxygen Delivery Method Room Air Weight Weight: 103 lb 2.821 oz Body Mass Index (BMI) 18.2 Physical Exam Narrative Physical Examination: General: Initially very fatigued but arousable, recent Ativan and phenobarbital, once awake more alert interactive, oriented x 3, notes feeling improved since these medications, seated upright in ED bed. Skin: Normal color, normal turgor, no icterus, no cyanosis except occasional states ecchymoses HEENT: AT/NC, EOMI, PERRLA, moderately dry MM, no carotid bruits or JVD noted. Lungs: Mildly diminished, greater bases, mildly increased respiratory rate but no distress, no appreciated rales, ronchi or wheezing. Heart: Improved, regular rate and rhythm; no gallop, rub audible. Abdomen: Soft, thin cachectic habitus, mild generalized discomfort with palpation of the abdomen but no rebound or guarding, ND, hyperactive BS, + HM. Extremities: No cyanosis, clubbing, or edema, evidence of muscle and fat loss. Neurological: Patient initially very fatigued but arousable, recent Ativan and phenobarbital, once awake more alert interactive, oriented x 3, cognitive function note baseline intact secondary recent sedation but improved during evaluation; pupils equally reactive to light and accommodation, cranial nerves grossly normal, moving all 4 extremities, no focal deficits, strength moderately to severely globally creased, still mildly tremulous and restless but notes improved since initial ED arrival. Psychiatric: Affect appears flat, fatigued, recent sedate of medications, no acute evidence of depressive or anxiety feelings but does have notable underlying history. Results Lab / Micro Data 11/29/24 19:30 11/29/24 19:30 Labs: Laboratory Results - last 24 hr 11/29/24 19:30: WBC 8.4, RBC 4.64, Hgb 14.7, Hct 43.1, MCV 92.9, MCH 31.7, MCHC 34.1, RDW Std Deviation 44.7 H, RDW Coeff of [place]on 13.2, Plt Count 172, MPV 9.0, Immature Gran % (Auto) 0.200, Neut % (Auto) 76.8 H, Lymph % (Auto) 18.0 L, [place] % (Auto) 4.5, Eos % (Auto) 0.0, Baso % (Auto) 0.5, Absolute Neuts (auto) 6.5, Absolute Lymphs (auto) 1.51, Nucleated RBC % 0, Sodium 135, Potassium 3.8, Chloride 91 L, Carbon Dioxide 14.1 L, Anion Gap 30 H, BUN 23 H, Creatinine 0.73, Estim Creat Clear Calc 58.28, Est GFR (MDRD) Non-Af 92, BUN/Creatinine Ratio 31.5 H, Glucose 115 H, Calcium 8.9, Total Bilirubin 0.35, AST 109 H, ALT 110 H, Alkaline Phosphatase 149 H, Total Protein 7.1, Albumin 4.4, Globulin 2.7, Albumin/Globulin Ratio 1.6, Ethyl Alcohol 273.0 H Assessment & Plan Assessment/Plan (1) Alcohol withdrawal: PLAN: Plan The patient is a 64 y/o F w/ PMHx: Former tobacco use, Diabetes mellitus type II, Anxiety and Depression, Hypothyroidism, Chronic pancytopenia secondary to EtOH abuse, Chronic alcoholic hepatitis/transaminitis secondary to EtOH abuse, Chronic Hyponatremia secondary to EtOH abuse, most recently admitted 09/25/2024 for alcohol withdrawal detox in her record successfully completing although the timeline seems significantly short as she was discharged on 09/27/2024 having unfortunately left AMA the previous time (07/01/2024) who now re-presents to the [facility] ED on 11/29/24 with history of request for alcohol detoxification currently drinking approximately 4-6 white claws at least daily with her last drink earlier in the morning on day of presentation with onset of withdrawal symptoms with history of significant hallucinations and withdrawal seizures in the past. #1. Acute EtOH Withdrawal: Will admit to [facility], routine labs obtained in the ED upon presentation as noted. Pending UDS upon request evaluation of patient. Given interest in sobriety, will initiate and continue on protocol with taper course of Phenobarbital, as needed gabapentin, Catapres, Bentyl, Vistaril, IV fluids, IV antiemetics, Tylenol as needed for pain. Will consult Case management for assistance for transition to next level of rehabilitation care. Mag, phos pending. Maintain on CIWA protocol concurrently. #2. Chronic alcoholic hepatitis/transaminitis secondary to alcohol abuse: Admission T. bili 0.35, AST/ALT 109/110, alk phos 149, most recent admission presentation 06/2024 with T. bili 1.0, AST/LT 94/103, alk phos 272, continue treatment as noted above #1, strongly encourage sobriety. #3. Anxiety and depression: Patient with notable underlying history, significantly contributing to her alcohol abuse, not on any medications, will benefit strongly from outpatient evaluation and follow-up, as needed agents per alcohol withdrawal protocol as noted above. #4. Chronic pancytopenia secondary to alcohol use: Admission CBC with WBC 8.4, hemoglobin 14.7, platelet 172 without marked shift, improved but previously had been pretty consistently chronically pancytopenic, previous presentation 07/01/2024 with CBC with WBC 5.5, Hgb 13.2, platelet 127 however in the past prior to this WBC had been more in the 4 range and platelets had been 90-100 range. #5. Chronic hyponatremia secondary to alcohol abuse: Admission presentation sodium 135, previous baseline low 130 range, improved from even previous presentations, most recent admission CMP 07/01/2024 CMP with sodium 132,will continue to judiciously hydrate per alcohol withdrawal order set. #6. Diabetes mellitus type II: Hold oral home regimen, ADA diet, accu checks w/ ISS. #7. Hypothyroidism: We will continue patient home levothyroxine regimen. #8. Former tobacco use: Encourage continued tobacco cessation. #9. Severe protein calorie malnutrition: Patient cachectic appearing habitus with muscle and fat loss, nutrition consulted for recommendations. #10. DVT prophylaxis: Low risk for type of presentation, encourage ambulation. If notably debililtated and less ambulatory low threshold to add chemoprophylaxis. Charges/Coding Visit Charges Inpatient E&M: 82792 Init Hosp L3
[2024-11-29 20:41] LABS: Amphetamine Urine NEGATIVE (<1000 ng/mL); Barbiturate Urine NEGATIVE (< 200 ng/mL); Benzodiazepine Urine NEGATIVE (< 200 ng/mL); Buprenorphine Urine NEGATIVE (< 200 ng/mL); Cocaine Urine NEGATIVE (< 300 ng/mL); Fentanyl, Urine NEGATIVE; Methadone Urine NEGATIVE (< 300 ng/mL); Opiates Urine NEGATIVE (< 300 ng/mL); Oxycodone, Urine NEGATIVE (< 100 ng/mL); PCP Urine NEGATIVE (< 25 ng/mL); THC Urine PRESUMPTIVE POSITIVE (< 50 ng/mL)
[2024-11-29 21:28] LABS: Magnesium 2.2 mg/dL (1.5-2.2); Phosphorus 3.8 mg/dL (2.7-4.5)
[2024-11-29] MEDS: Gabapentin 300 MG Capsule PO (22:01)
[2024-11-29] MEDS: Lactated Ringers 1,000 ML 125 ML IV (22:01)
[2024-11-29] MEDS: traZODone 100 MG Tablet PO (22:01)
[2024-11-29] MEDS: Dicyclomine 10 MG Capsule 20 MG PO (22:01)
[2024-11-29] MEDS: hydrOXYzine PAM 25 MG Capsule 50 MG PO (22:01)
[2024-11-29 22:29] LABS: Bedside Glucose 65 mg/dL (74-106)
[2024-11-30] MEDS: Phenobarbital 32.4 MG Tablet 97.2 MG PO ×3 (02:12→09:47)
[2024-11-30 05:40] VITALS: BP 124/63; PULSE 93; RESP 18; TEMP 36.9; O2SAT 96
[2024-11-30] MEDS: Levothyroxine 75 MCG Tablet PO (05:44)
[2024-11-30 06:04] LABS: Bedside Glucose 86 mg/dL (74-106)
--- NOTE | 2024-11-30 09:35 | PN.HOSP_ITS ---
Reason for Visit Reason for Visit: Diagnoses Alcohol use, unspecified with withdrawal, unspecified (11/29/24) Subjective Subjective Saw patient at bedside this morning. Patient was sleeping on my arrival to the room. Upon awakening, patient was mildly fatigued appearing but otherwise sitting up comfortably in bed and answering questions appropriately. She denied any alcohol withdrawal symptoms this morning. No other acute concerns today. Objective Data Objective Data Vital Signs: Vital Signs Temp Pulse Resp BP Pulse Ox O2 Del Method 98.4 F 93 18 124/63 H 96 Room Air 11/30/24 05:40 11/30/24 05:40 11/30/24 05:40 11/30/24 05:40 11/30/24 05:40 11/30/24 05:40 Oxygen Delivery Method Room Air Weight: 45.359 kg Body Mass Index (BMI) 17.6 Intake & Output: Intake and Output for Last 24 Hours 11/28/24 11/29/24 11/30/24 23:59 23:59 23:59 Intake Total 1000 / 1000 1000 / 1000 Balance 1000 / 1000 1000 / 1000 Lab / Micro Data 11/29/24 19:30 11/29/24 19:30 Labs: Laboratory Results - last 24 hr 11/29/24 19:30: WBC 8.4, RBC 4.64, Hgb 14.7, Hct 43.1, MCV 92.9, MCH 31.7, MCHC 34.1, RDW Std Deviation 44.7 H, RDW Coeff of Pelon 13.2, Plt Count 172, MPV 9.0, Immature Gran % (Auto) 0.200, Neut % (Auto) 76.8 H, Lymph % (Auto) 18.0 L, [place] % (Auto) 4.5, Eos % (Auto) 0.0, Baso % (Auto) 0.5, Absolute Neuts (auto) 6.5, Absolute Lymphs (auto) 1.51, Nucleated RBC % 0, Sodium 135, Potassium 3.8, C hloride 91 L, Carbon Dioxide 14.1 L, Anion Gap 30 H, BUN 23 H, Creatinine 0.73, Estim Creat Clear Calc 58.28, Est GFR (MDRD) Non-Af 92, BUN/Creatinine Ratio 31.5 H, Glucose 115 H, Calcium 8.9, Phosphorus 3.8, Magnesium 2.2, Total Bilirubin 0.35, AST 109 H, ALT 110 H, Alkaline Phosphatase 149 H, Total Protein 7.1, Albumin 4.4, Globulin 2.7, Albumin/Globulin Ratio 1.6, Urine Opiates Screen NEGATIVE, U Buprenorphine Qual NEGATIVE, Ur Oxycodone Screen NEGATIVE, Urine Methadone Screen NEGATIVE, Urine Fentanyl Screen NEGATIVE, Ur Barbiturates Screen NEGATIVE, Ur Phencyclidine Scrn NEGATIVE, Ur Amphetamines Screen NEGATIVE, U Benzodiazepines Scrn NEGATIVE, Urine Cocaine Screen NEGATIVE, U Cannabinoids Screen PRESUMPTIVE POSITIVE, Ethyl Alcohol 273.0 H 11/29/24 21:34: POC Glucose 65 L 11/30/24 05:44: POC Glucose 86 Physical Exam Const alert and oriented x3 Constitutional Narrative: Upper middle-aged female, thin and chronically ill-appearing, mildly fatigued appearing but otherwise sitting back comfortably in bed, conversing normally, in no acute distress. General Appearance: cooperative HEENT normocephalic, head/scalp atraumatic, hearing grossly normal bilaterally and nasal mucous membranes and turbinates normal Eyes PERRL, EOMs intact bilaterally and conjunctivae normal Neck full ROM Chest inspection of chest normal Resp normal respiratory effort, normal air movement, no use of accessory muscles and clear to auscultation bilaterally Cardio regular rate, regular rhythm, no murmurs and peripheral pulses 2+ throughout GI normal to inspection, nondistended, normoactive bowel sounds, soft to palpation, non-tender and non-distended Back/Spine normal ROM Extremity normal to inspection, full ROM and no pedal edema Skin no rashes or lesions noted Neuro moves all extremities and no focal motor deficits Psych mental status grossly normal Assessment & Plan Assessment/Plan (1) Alcohol withdrawal: (2) Desire for detoxification: PLAN: Plan Patient is a 64-year-old female who presented [facility] ED on 11/29/2024 with alcohol withdrawal requesting detox. 1. Alcohol abuse with withdrawal and desire for detoxification ? Addiction medicine following. Alcohol level 273 on admit. Drinks at least 4- 6 white claws daily. This is patient's fourth hospitalization for alcohol detox since March. Has been treated with phenobarbital taper during hospitalizations with good symptom control. Treating again with phenobarbital taper and other as needed medications per alcohol withdrawal order set. Per addiction medicine, patient has shown poor insight into her situation on prior hospitalizations and has gone home and resumed drinking again; appreciate further addiction medicine recommendations. 2. Chronic alcohol hepatitis with elevated transaminases ? AST 109, ALT 110, alk phos 149 on admit. Similar to previous. Presumed secondary to alcohol use. No need to monitor further while inpatient. 3. Hypothyroidism ? Continue home Synthroid. 4. Severe protein calorie malnutrition ? Nutrition following. BMI 17.7 on admit inpatient cachectic appearing with muscle and fat loss. Regular diet with protein supplements with meals while inpatient. DVT prophylaxis: Lovenox CODE STATUS: Full code, verified Expected disposition: Likely home, 2 to 3 days Total clinical time spent by myself addressing the patient's medical issues, reviewing all the data, and collaborating with patient's care team: 25 minutes. Charges/Coding Visit Charges Inpatient E&M: 17405 Subs Hosp L1
[2024-11-30] MEDS: Folic Acid 1 MG Tablet PO (09:48)
[2024-11-30] MEDS: Thiamine Hydrochloride 100 MG Tablet PO (09:48)
[2024-11-30] MEDS: Multivitamins,Ther W-Minerals Tablet 1 TABLET PO (09:48)
[2024-11-30 09:51] VITALS: BP 143/76; PULSE 104; RESP 18; TEMP 36.9; O2SAT 97
--- NOTE | 2024-11-30 10:23 | CASEMGMT ---
Social Work- Pt is self-pay status. [employer] patient care representative Kaitlin met with pt who is significantly over income, receives alimony, and has savings and stocks. Pt denies any needs for SW at this time. Pt denies wanting supply chain specialist services at this time as well. SW collaborated with Kaitlin, [employer], and Christoph, supply chain specialist. LUKE Fontenot
--- NOTE | 2024-11-30 10:50 | ADDICTION ---
Met with patient to complete RAMP assessments. Pt reported that just need to get through the system here. This worker asked her to clarify. She reported that she just wanted to go through detox and go home. Clinician reminded her that this is her 4th time in 6 months. She reported that I know but I just need to get through this. Clinician offered resources; she declined.
[2024-11-30 11:39] LABS: Bedside Glucose 192 mg/dL (74-106)
[2024-11-30] MEDS: Insulin Lispro 100 UNIT/ML INSULN.PEN SC (11:45)
[2024-11-30 13:31] VITALS: BP 172/87; PULSE 103; RESP 18; TEMP 36.9; O2SAT 97
--- NOTE | 2024-11-30 13:35 | DCINST_ITS ---
Discharge Instructions DC O2, CPAP, BIPAP needs Home O2 Discharge instructions: No Follow Up Care Test Results: Test results from this visit will be discussed in further detail at your follow- up appointment, if applicable. Discharge Plan Admission Admit Date/Time: 11/29/24 20:41 Primary Reason for Your Visit: alcohol withdrawal Attending Provider: Kendall Tierney Primary Care Provider: Ellen Lao Consulting Providers: Shivani Mae Discharge Orders/Prescriptions Prescriptions: Continued Jardiance 10 mg tablet 10 mg PO DAILY levothyroxine [Synthroid] 75 mcg tablet 75 mcg PO DAILY Centrum Adults 12 mcg tablet,chewable 1 tab PO DAILY cholecalciferol (vitamin D3) [Vitamin D3] 25 mcg (1,000 unit) tablet,chewable 10,000 unit PO .weekly cyanocobalamin (vitamin B-12) [Vitamin B-12] 1,000 mcg tablet 5,000 mcg PO DAILY (DME) FreeStyle Ofe 3 Sensor Device MISCELLANEOUS Patient Comments: Apply a new sensor every 14 days Discontinued phenobarbital 32.4 mg tablet 32.4 mg PO TID Qty: 9 0RF Referrals / Follow Up: Ellen Lao MD [Primary Care Provider] - Disposition Disposition (needs filled in before D/C Order can be placed): Against Medical Advice
--- NOTE | 2024-11-30 13:37 | PCM.DC.SUM ---
Providers Date of Admission: 11/29/24 Date of Discharge: 11/30/24 Primary Care Physician: Ellen Lao MD Reason For Visit: ETOH WITHDRAWAL Diagnosis Discharge Diagnosis (1) Alcohol withdrawal: Status: Inactive Code(s): F10.939 - Alcohol use, unspecified with withdrawal, unspecified (2) Desire for detoxification: Status: Inactive Medications at Discharge Home Medications empagliflozin 10 mg tablet (Jardiance) 10 mg PO DAILY 10/15/23 levothyroxine 75 mcg tablet (Synthroid) 75 mcg PO DAILY 10/15/23 cholecalciferol (vitamin D3) 25 mcg (1,000 unit) chewable tablet (Vitamin D3) 10,000 unit PO .weekly 10/29/23 cyanocobalamin (vitamin B-12) 1,000 mcg tablet (Vitamin B-12) 5,000 mcg PO DAILY 10/29/23 multivitamin with minerals-folic acid 12 mcg chewable tablet (Centrum Adults) 1 tab PO DAILY 10/29/23 blood-glucose sensor (FreeStyle Ofe 3 Sensor device) 09/25/24 Hospital Course Operations None Procedures None Summary of Care Provided Minutes Spent on Discharge: 25 Hospital Course: Patient is a 64-year-old female who presented [facility] ED on 11/29/2024 with alcohol withdrawal requesting detox. Short hospital course as noted below. Patient left AGAINST MEDICAL ADVICE on 11/30. 1. Alcohol abuse with withdrawal and desire for detoxification ? Addiction medicine followed. Alcohol level 273 on admit. Drinks at least 4-6 white claws daily. This was patient's fourth hospitalization for alcohol detox since March. Treated with phenobarbital taper during prior hospitalizations with good symptom control. Treated again with phenobarbital taper and other as needed medications per alcohol withdrawal order set on this admission. Per addiction medicine, patient has shown poor insight into her situation on prior hospitalizations and has gone home and resumed drinking again. Unfortunately, patient opted to leave AGAINST MEDICAL ADVICE on 11/30. 2. Chronic alcohol hepatitis with elevated transaminases ? AST 109, ALT 110, alk phos 149 on admit. Similar to previous. Presumed secondary to alcohol use. No need to monitor further while inpatient. 3. Hypothyroidism ? Continue home Synthroid. 4. Severe protein calorie malnutrition ? Nutrition followed. BMI 17.7 on admit inpatient cachectic appearing with muscle and fat loss. Regular diet with protein supplements with meals while inpatient. Total clinical time spent by myself addressing the patient's medical issues, reviewing all the data, and collaborating with patient's care team: 25 minutes. Physical Exam Const alert and oriented x3 Constitutional Narrative: Upper middle-aged female, thin and chronically ill-appearing, mildly fatigued appearing but otherwise sitting back comfortably in bed, conversing normally, in no acute distress. General Appearance: cooperative HEENT normocephalic, head/scalp atraumatic, hearing grossly normal bilaterally and nasal mucous membranes and turbinates normal Eyes PERRL, EOMs intact bilaterally and conjunctivae normal Neck full ROM Chest inspection of chest normal Resp normal respiratory effort, normal air movement, no use of accessory muscles and clear to auscultation bilaterally Cardio regular rate, regular rhythm, no murmurs and peripheral pulses 2+ throughout GI normal to inspection, nondistended, normoactive bowel sounds, soft to palpation, non-tender and non-distended Back/Spine normal ROM Extremity normal to inspection, full ROM and no pedal edema Skin no rashes or lesions noted Neuro moves all extremities and no focal motor deficits Psych mental status grossly normal Weight / BMI Weight Weight: 45.359 kg Body Mass Index (BMI) 17.6 ABG / Lab / Microbiology Data 11/29/24 19:30 11/29/24 19:30 Laboratory: Laboratory Results - last 24 hr 11/29/24 19:30: WBC 8.4, RBC 4.64, Hgb 14.7, Hct 43.1, MCV 92.9, MCH 31.7, MCHC 34.1, RDW Std Deviation 44.7 H, RDW Coeff of Pelon 13.2, Plt Count 172, MPV 9.0, Immature Gran % (Auto) 0.200, Neut % (Auto) 76.8 H, Lymph % (Auto) 18.0 L, [place] % (Auto) 4.5, Eos % (Auto) 0.0, Baso % (Auto) 0.5, Absolute Neuts (auto) 6.5, Absolute Lymphs (auto) 1.51, Nucleated RBC % 0, Sodium 135, Potassium 3.8, Chloride 91 L, Carbon Dioxide 14.1 L, Anion Gap 30 H, BUN 23 H, Creatinine 0.73, Estim Creat Clear Calc 58.28, Est GFR (MDRD) Non-Af 92, BUN/Creatinine Ratio 31.5 H, Glucose 115 H, Calcium 8.9, Phosphorus 3.8, Magnesium 2.2, Total Bilirubin 0.35, AST 109 H, ALT 110 H, Alkaline Phosphatase 149 H, Total Protein 7.1, Albumin 4.4, Globulin 2.7, Albumin/Globulin Ratio 1.6, Urine Opiates Screen NEGATIVE, U Buprenorphine Qual NEGATIVE, Ur Oxycodone Screen NEGATIVE, Urine Methadone Screen NEGATIVE, Urine Fentanyl Screen NEGATIVE, Ur Barbiturates Screen NEGATIVE, Ur Phencyclidine Scrn NEGATIVE, Ur Amphetamines Screen NEGATIVE, U Benzodiazepines Scrn NEGATIVE, Urine Cocaine Screen NEGATIVE, U Cannabinoids Screen PRESUMPTIVE POSITIVE, Ethyl Alcohol 273.0 H 11/29/24 21:34: POC Glucose 65 L 11/30/24 05:44: POC Glucose 86 11/30/24 11:15: POC Glucose 192 H D/C Instructions DC O2, CPAP, BIPAP Needs Home O2 Discharge instructions: No Meaningful Use Info Meaningful Use Meaningful Use Diagnoses (Choose all that apply): None applicable Ischemic Stroke Statin Dosing Therapy Reference: STATIN DOSE THERAPY REFERENCE: * Patients > 75 years receive moderate or high dose statin therapy. * Patients 75 years or YOUNGER should receive HIGH intensity statin dose unless contraindicated. You will be required to document reason for non-treatment if statin daily dose does not meet guidelines. HIGH DOSE STATIN THERAPY DAILY Atorvastatin > than or = to 40 mg Rosuvastatin > than or = to 20 mg Amlodipine + Atorvastatin > than or = to 2.5/40 mg Ezetimibe + Simvastatin 10/80 mg Simvastatin 80mg Discharge Plan Admission Admit Date/Time: 11/29/24 20:41 Primary Reason for Your Visit: alcohol withdrawal Attending Provider: Kendall Tierney Primary Care Provider: Ellen Lao Consulting Providers: Shivani Mae Discharge Orders/Prescriptions Prescriptions: Continued Jardiance 10 mg tablet 10 mg PO DAILY levothyroxine [Synthroid] 75 mcg tablet 75 mcg PO DAILY Centrum Adults 12 mcg tablet,chewable 1 tab PO DAILY cholecalciferol (vitamin D3) [Vitamin D3] 25 mcg (1,000 unit) tablet,chewable 10,000 unit PO .weekly cyanocobalamin (vitamin B-12) [Vitamin B-12] 1,000 mcg tablet 5,000 mcg PO DAILY (DME) LIFEmeeStyle Ofe 3 Sensor Device MISCELLANEOUS Patient Comments: Apply a new sensor every 14 days Discontinued phenobarbital 32.4 mg tablet 32.4 mg PO TID Qty: 9 0RF Referrals / Follow Up: Ellen Lao MD [Primary Care Provider] - Disposition Disposition (needs filled in before D/C Order can be placed): Against Medical Advice Charges/Coding Visit Charges Inpatient E&M: 22356 Disch Hosp
== END 2024-11-30 13:30 | disposition home or self-care (01) | DRG 896 ==
LOC: ED 20:53 → MS3 20:55
PROVIDERS: Physician Assistant; Admitting Provider Family Medicine; Emergency Provider Emergency Medicine; PCP Family Medicine; Visit Provider Hospitalist
DX: F10.239 Alcohol dependence with withdrawal, unspecified (principal); E43 Unspecified severe protein-calorie malnutrition; E87.1 Hypo-osmolality and hyponatremia; Z68.1 Body mass index [BMI] 19.9 or less, adult; K70.10 Alcoholic hepatitis without ascites; J43.9 Emphysema, unspecified; E11.9 Type 2 diabetes mellitus without complications; E03.9 Hypothyroidism, unspecified; I10 Essential (primary) hypertension; F32.A Depression, unspecified; E78.00 Pure hypercholesterolemia, unspecified; K21.9 Gastro-esophageal reflux disease without esophagitis; F41.9 Anxiety disorder, unspecified; Z79.84 Long term (current) use of oral hypoglycemic drugs; Z87.891 Personal history of nicotine dependence; Z79.890 Hormone replacement therapy; Z79.899 Other long term (current) drug therapy; Z88.8 Allergy status to other drugs, medicaments and biological substances; Y90.7 Blood alcohol level of 200-239 mg/100 ml
CPT/HCPCS: 80053; 80307; 82077; 82962; 83735; 84100; 85025; 97802; 99283; A4216